=== PATIENT | female | born 1945 | race Caucasian/White ===

== ENCOUNTER 2017-01-15 13:22 | Emergency (ER) | payer MEDICARE ==
[~2017-01-15] VITALS: Ht 154.9 cm; Wt 75.0 kg
[2017-01-15] MEDS ORDERED: OMEP20TA PO (13:30)
[2017-01-15] MEDS ORDERED: ASPI1TAB69 PO (13:30)
[2017-01-15] MEDS ORDERED: ATEN25TA PO (13:30)
[2017-01-15] MEDS ORDERED: CHOL1TAB42 PO (13:30)
[2017-01-15] MEDS ORDERED: ATOR1TAB18 PO (13:30)
[2017-01-15] MEDS ORDERED: AMLO5TAB2 PO (13:30)
[2017-01-15 13:32] VITALS: BP 162/76; PULSE 92; RESP 16; TEMP 99.5; O2SAT 95
--- NOTE | 2017-01-15 14:00 | PD ---
HPI Chief Complaint: Cardiac Complaint Time Seen by Provider: 13:56 Travel History International Travel<30 days: No Contact w/Intl Traveler<30days: No Traveled to known affect area: No History of Present Illness HPI Patient presents with concerns of an irregular fast heartbeat at about 11 AM which lasted for approximately 20 minutes. Denies any associated chest pain diaphoresis or shortness of breath. Denies any excessive caffeine or high energy drinks. Denies increased stressors. States was a similar episode that occurred approximately 2 weeks ago. No complaints at this point in time. PFSH Past Medical History Arthritis: Yes High Cholesterol: Yes GERD: Yes Hypertension: Yes Influenza Vaccination: Yes ?: Not Past Surgical History Hysterectomy: Yes Social History Alcohol Use: Yes (4 GLASSES OF WINE DAILY) Tobacco Use: No Substance Use: No Allergies-Medications (Allergen,Severity, Reaction): Coded Allergies: No Known Allergies (Unverified , 01/15/17) Reported Meds & Prescriptions Reported Meds & Active Scripts Active Reported Vitamin D-3 (Cholecalciferol) 2,000 Unit Tab 1 Tab PO DAILY Aspirin 81 Mg Tabdr 81 Mg PO DAILY Omeprazole 20 Mg Tab 20 Mg PO DAILY Atorvastatin (Atorvastatin Calcium) 80 Mg Tab 80 Mg PO HS Atenolol 25 Mg Tab 25 Mg PO HS Amlodipine (Amlodipine Besylate) 5 Mg Tab 5 Mg PO DAILY Review of Systems General / Constitutional: No: Fever Eyes: No: Visual changes HENT: No: Headaches Cardiovascular: Positive: Irregular Rhythm, Tachycardia, No: Chest Pain or Discomfort Respiratory: No: Shortness of Breath Gastrointestinal: No: Abdominal Pain Genitourinary: No: Dysuria Musculoskeletal: No: Pain Skin: No Rash Neurologic: No: Weakness Psychiatric: No: Depression Endocrine: No: Polydipsia Hematologic/Lymphatic: No: Easy Bruising Physical Exam Narrative GENERAL: Well-nourished, well-developed patient. SKIN: Focused skin assessment warm/dry. HEAD: Normocephalic. EYES: No scleral icterus. No injection or drainage. NECK: Supple, trachea midline. No JVD or lymphadenopathy. CARDIOVASCULAR: Regular rate and rhythm without murmurs, gallops, or rubs. RESPIRATORY: Breath sounds equal bilaterally. No accessory muscle use. GASTROINTESTINAL: Abdomen soft, non-tender, nondistended. MUSCULOSKELETAL: No cyanosis, or edema. BACK: Nontender without obvious deformity. No CVA tenderness. Data Data Last Documented VS Vital Signs Date Time Temp Pulse Resp B/P Pulse Ox O2 Delivery O2 Flow Rate FiO2 01/15/17 13:32 99.5 92 16 162/76 95 Orders Electrocardiogram (01/15/17 ) MDM Medical Decision Making Medical Screen Exam Complete: Yes Emergency Medical Condition: Yes Differential Diagnosis Irregular heartbeat, atrial fibrillation ablation, PVC, excessive caffeine Narrative Course Assessment and plan discussed with patient and family at bedside. EKG revealed normal sinus rhythm rate of 84. Since there is no associated chest pain do not think cardiac enzymes are appropriate. Diagnosis Primary Impression: Irregular heartbeat Additional Instructions: Encouraged rest and fluids. Encouraged avoidance of stimulants. Encouraged to follow-up with PCP to discuss a 24-hour Holter monitor. Encouraged a event diary. Med/Other Pt SpecificInfo: No Meds Exist/No RX given Disposition: 01 DISCHARGE HOME Condition: Good Stevie Alcantara MD Jan 15, 2017 14:00
--- NOTE | 2017-01-16 14:45 | EKG ---
Date Performed: 01/15/2017 Time Performed: 13:44:20 PTAGE: 71 years EKG: Sinus rhythm Low QRS voltages in precordial leads Minimal nonspecific ST T-wave changes Borderline ECG NO PREVIOUS TRACING for comparison DOCTOR: Pavithra Sandoval Interpretating Date/Time 01/16/2017 14:45:27
== END 2017-01-15 14:13 | disposition home or self-care (01) ==
LOC: PHED 13:22
DX: I49.9 Cardiac arrhythmia, unspecified (principal)
CPT/HCPCS: 93005

== ENCOUNTER 2017-01-20 02:19 | Emergency (ER) | payer MEDICARE ==
[~2017-01-20] VITALS: Ht 154.9 cm; Wt 75.0 kg
[~2017-01-20 02:19] MED LIST: AMLO5TAB2 PO; ASPI1TAB69 PO; ATEN25TA PO; ATOR1TAB18 PO; CHOL1TAB42 PO; OMEP20TA PO
[2017-01-20 02:22] VITALS: BP 155/74; PULSE 89; RESP 18; TEMP 98.1; O2SAT 95
[2017-01-20] MEDS ORDERED: SODIUM CHLORIDE 0.9% FLUSH 10 ML FLUSH IVF PRN (02:45)
[2017-01-20] MEDS ORDERED: SODIUM CHLOR 0.9% 1000 ML INJ 1,000 ML IV ONE (02:45)
--- NOTE | 2017-01-20 02:52 | PD ---
HPI Chief Complaint: Cardiac Complaint Time Seen by Provider: 02:31 Travel History International Travel<30 days: No Contact w/Intl Traveler<30days: No Traveled to known affect area: No History of Present Illness HPI Patient is a 71-year-old male with hx of htn, hyperlipidemia, who presents to emergency room with complaints of palpitations and possibly afib. As per patient, patient reports that she woke up please a bathroom, reports that she felt her heart racing. Reports no chest pain, diaphoresis or shortness of breath of symptoms. Patient called for EMS. As per EMS, when EMS arrived on scene, patient's heart rate was in the 140s to the 160s. Reports that she appeared to be in A.fib. EMS reports the patient appeared dehydrated as her skin was dry, reports that they administered at 500 cc bolus of IV fluids and patient is currently in normal sinus rhythm. Patient with no complaints at this time, denies palpitations, chest pain, nausea vomiting at this time. Patient reports that this is the third time that this happened in the past 4 weeks, reports that 4 weeks ago as well as last Monday, she had similar symptoms where she woke up from sleep to use the restroom and had rapid heart rate. Reports that she did make an appointment with a vehicle controls engineer and the earliest that she can get her appointment was on February 13, [address] Clarissa ZHENG Past Medical History Arthritis: Yes Cardiovascular Problems: Yes (htn ) High Cholesterol: Yes GERD: Yes Hypertension: Yes Influenza Vaccination: Yes Past Surgical History Hysterectomy: Yes Social History Alcohol Use: Yes (4 GLASSES OF WINE DAILY) Tobacco Use: No Substance Use: No Allergies-Medications (Allergen,Severity, Reaction): Coded Allergies: No Known Allergies (Unverified , 01/20/17) Reported Meds & Prescriptions Reported Meds & Active Scripts Active Reported Vitamin D-3 (Cholecalciferol) 2,000 Unit Tab 1 Tab PO DAILY Aspirin 81 Mg Tabdr 81 Mg PO DAILY Omeprazole 20 Mg Tab 20 Mg PO DAILY Atorvastatin (Atorvastatin Calcium) 80 Mg Tab 80 Mg PO HS Atenolol 25 Mg Tab 25 Mg PO HS Amlodipine (Amlodipine Besylate) 5 Mg Tab 5 Mg PO DAILY Review of Systems General / Constitutional: No: Fever Eyes: No: Visual changes HENT: No: Headaches Cardiovascular: Positive: Palpitations, Irregular Rhythm, Tachycardia, No: Chest Pain or Discomfort Respiratory: No: Cough, Shortness of Breath, Wheezing Gastrointestinal: No: Abdominal Pain Genitourinary: No: Dysuria Musculoskeletal: No: Pain Skin: No Rash Neurologic: No: Weakness Psychiatric: No: Depression Endocrine: No: Polydipsia Hematologic/Lymphatic: No: Easy Bruising Physical Exam Narrative GENERAL: No acute distress, nontoxic SKIN: Focused skin assessment warm/dry. HEAD: Atraumatic. Normocephalic. EYES: Pupils equal and round. No scleral icterus. No injection or drainage. ENT: No nasal bleeding or discharge. Mucous membranes pink and moist. NECK: Trachea midline. No JVD. CARDIOVASCULAR: Regular rate and rhythm. No murmur appreciated. RESPIRATORY: No accessory muscle use. Clear to auscultation. Breath sounds equal bilaterally. GASTROINTESTINAL: Abdomen soft, non-tender, nondistended. Hepatic and splenic margins not palpable. MUSCULOSKELETAL: No obvious deformities. No clubbing. No cyanosis. No edema. NEUROLOGICAL: Awake and alert. No obvious cranial nerve deficits. Motor grossly within normal limits. Normal speech. PSYCHIATRIC: Appropriate mood and affect; insight and judgment normal. Data Data Last Documented VS Vital Signs Date Time Temp Pulse Resp B/P Pulse Ox O2 Delivery O2 Flow Rate FiO2 01/20/17 04:05 18 95 Room Air 01/20/17 02:22 98.1 89 155/74 Orders Basic Metabolic Panel (Bmp) (01/20/17 02:32) Ckmb (Isoenzyme) Profile (01/20/17 02:32) Complete Blood Count With Diff (01/20/17 02:32) Magnesium (Mg) (01/20/17 02:32) Prothrombin Time / Inr (Pt) (01/20/17 02:32) Act Partial Throm Time (Ptt) (01/20/17 02:32) Troponin I (01/20/17 02:32) Chest, Single Ap (01/20/17 02:32) Ecg Monitoring (01/20/17 02:32) Iv Access Insert/Monitor (01/20/17 02:32) Oximetry (01/20/17 02:32) Sodium Chloride 0.9% Flush (Ns Flush) (01/20/17 02:45) Thyroid Stimulating Hormone (01/20/17 02:32) Sodium Chlor 0.9% 1000 Ml Inj (Ns 1000 M (01/20/17 02:45) Labs Laboratory Tests Test 01/20/17 02:45 White Blood Count 6.4 TH/MM3 Red Blood Count 4.71 MIL/MM3 Hemoglobin 14.6 GM/DL Hematocrit 44.5 % Mean Corpuscular Volume 94.5 FL Mean Corpuscular Hemoglobin 31.1 PG Mean Corpuscular Hemoglobin 32.9 % Concent Red Cell Distribution Width 14.2 % Platelet Count 268 TH/MM3 Mean Platelet Volume 7.4 FL Neutrophils (%) (Auto) 52.1 % Lymphocytes (%) (Auto) 32.3 % Monocytes (%) (Auto) 11.9 % Eosinophils (%) (Auto) 2.9 % Basophils (%) (Auto) 0.8 % Neutrophils # (Auto) 3.3 TH/MM3 Lymphocytes # (Auto) 2.1 TH/MM3 Monocytes # (Auto) 0.8 TH/MM3 Eosinophils # (Auto) 0.2 TH/MM3 Basophils # (Auto) 0.1 TH/MM3 CBC Comment DIFF FINAL Differential Comment Prothrombin Time 10.8 SEC Prothromb Time International 1.0 RATIO Ratio Activated Partial 26.2 SEC Thromboplast Time Sodium Level 141 MEQ/L Potassium Level 3.6 MEQ/L Chloride Level 105 MEQ/L Carbon Dioxide Level 28.4 MEQ/L Anion Gap 8 MEQ/L Blood Urea Nitrogen 12 MG/DL Creatinine 0.61 MG/DL Estimat Glomerular Filtration 96 ML/MIN Rate Random Glucose 113 MG/DL Calcium Level 8.4 MG/DL Magnesium Level 1.9 MG/DL Total Creatine Kinase 61 U/L Troponin I LESS THAN 0.02 NG/ML Thyroid Stimulating Hormone 3.190 uIU/ML 3rd Gen [facility] Medical Decision Making Medical Screen Exam Complete: Yes Emergency Medical Condition: Yes Interpretation(s) EKG at 0226: Normal sinus rhythm at 89 beats for minute, QT/QTC 365/412, no acute ST or T-wave changes Vital Signs Date Time Temp Pulse Resp B/P Pulse Ox O2 Delivery O2 Flow Rate FiO2 01/20/17 02:22 98.1 89 18 155/74 95 Differential Diagnosis Paroxysmal A. fib, hypothyroid, dehydration, electrolyte abnormality Narrative Course Patient is a 71-year-old female who presents to emergency room with complaint of palpitations. She reports that this is the third time she woke up from sleep in the past 4 weeks with rapid heart rate. Patient reports that her symptoms only last for about 15 minutes at a time and resolve on its own. Today , patient called EMS and when they arrived on scene, reports her heart rate ranged from 140-160's. reports that it appeared that patient was in afib - reprots that she went back to NSR at 500ml bolus of fluid. Patient currently in normal sinus rhythm, plan to check lab work as well as obtain x-ray of chest. Will continue to monitor patient on case monitor. Laboratory Tests Test 01/20/17 02:45 White Blood Count 6.4 TH/MM3 (4.0-11.0) Red Blood Count 4.71 MIL/MM3 (4.00-5.30) Hemoglobin 14.6 GM/DL (11.6-15.3) Hematocrit 44.5 % (35.0-46.0) Mean Corpuscular Volume 94.5 FL (80.0-100.0) Mean Corpuscular Hemoglobin 31.1 PG (27.0-34.0) Mean Corpuscular Hemoglobin 32.9 % Concent (32.0-36.0) Red Cell Distribution Width 14.2 % (11.6-17.2) Platelet Count 268 TH/MM3 (150-450) Mean Platelet Volume 7.4 FL (7.0-11.0) Neutrophils (%) (Auto) 52.1 % (16.0-70.0) Lymphocytes (%) (Auto) 32.3 % (9.0-44.0) Monocytes (%) (Auto) 11.9 % (0.0-8.0) Eosinophils (%) (Auto) 2.9 % (0.0-4.0) Basophils (%) (Auto) 0.8 % (0.0-2.0) Neutrophils # (Auto) 3.3 TH/MM3 (1.8-7.7) Lymphocytes # (Auto) 2.1 TH/MM3 (1.0-4.8) Monocytes # (Auto) 0.8 TH/MM3 (0-0.9) Eosinophils # (Auto) 0.2 TH/MM3 (0-0.4) Basophils # (Auto) 0.1 TH/MM3 (0-0.2) CBC Comment DIFF FINAL Differential Comment Prothrombin Time 10.8 SEC (9.8-11.6) Prothromb Time International 1.0 RATIO Ratio Activated Partial 26.2 SEC Thromboplast Time (24.3-30.1) Sodium Level 141 MEQ/L (136-145) Potassium Level 3.6 MEQ/L (3.5-5.1) Chloride Level 105 MEQ/L (98-107) Carbon Dioxide Level 28.4 MEQ/L (21.0-32.0) Anion Gap 8 MEQ/L (5-15) Blood Urea Nitrogen 12 MG/DL (7-18) Creatinine 0.61 MG/DL (0.50-1.00) Estimat Glomerular Filtration 96 ML/MIN (>89) Rate Random Glucose 113 MG/DL (74-106) Calcium Level 8.4 MG/DL (8.5-10.1) Magnesium Level 1.9 MG/DL (1.5-2.5) Total Creatine Kinase 61 U/L (26-192) Troponin I LESS THAN 0.02 NG/ML (0.02-0.05) Thyroid Stimulating Hormone 3.190 uIU/ML 3rd Gen (0.358-3.740) Last Impressions Chest X-Ray 01/20/17 0232 Signed Impressions: Service Date/Time: Friday, January 20, 2017 02:31 - CONCLUSION: No acute intrathoracic disease. Bong Hidalgo MD All labs and studies reviewed with patient in detail. Patient with HR in the 70- 80's in NSR. Patient reports that she is feeling better at this time. Plan to discharge patient to home with outpatient follow-up with vehicle controls engineer. Discussed need to call vehicle controls engineer for earlier appointment, also recommended having her primary care doctor order a Holter monitor to catch her irregular rhythm when it happens. Patient will return to emergency room if symptoms return. Diagnosis Primary Impression: Irregular heartbeat Patient Instructions: General Instructions Additional Instructions: Please call your doctor for earliest follow up Return to ER as needed or if symptoms return Please call vehicle controls engineer for earliest follow up appointment Disposition: 01 DISCHARGE HOME Condition: Stable Betty Waddell DO Jan 20, 2017 02:52
[2017-01-20 03:03] LABS: AUTOMATED NEUTROPHIL # 3.3 TH/MM3 (1.8-7.7); BASOPHIL # 0.1 TH/MM3 (0-0.2); BASOPHIL % 0.8 % (0.0-2.0); EOSINOPHIL # 0.2 TH/MM3 (0-0.4); EOSINOPHIL % 2.9 % (0.0-4.0); HEMATOCRIT 44.5 % (35.0-46.0); HEMO FLAGS DIFF FINAL; LYMPH % 32.3 % (9.0-44.0); LYMPHOCYTE # 2.1 TH/MM3 (1.0-4.8); MEAN CELL VOLUME 94.5 FL (80.0-100.0); MEAN CORPUSCULAR HEMOGLOBIN 31.1 PG (27.0-34.0); MEAN CORPUSCULAR HGB CONC 32.9 % (32.0-36.0); MONO % 11.9 % (0.0-8.0); NEUT % 52.1 % (16.0-70.0); PLATELET COUNT 268 TH/MM3 (150-450); RED BLOOD COUNT 4.71 MIL/MM3 (4.00-5.30); RED CELL DISTRIBUTION WIDTH 14.2 % (11.6-17.2); WHITE BLOOD COUNT 6.4 TH/MM3 (4.0-11.0)
[2017-01-20 03:10] LABS: APTT (PATIENT) 26.2 SEC (24.3-30.1); PROTHROMBIN TIME - PATIENT 10.8 SEC (9.8-11.6)
--- NOTE | 2017-01-20 03:18 | RADRPT ---
EXAM DATE/TIME: 01/20/2017 02:31 [facility] COMPARISON: No previous studies available for comparison. INDICATIONS : Heart palpitations. MEDICAL HISTORY : None. SURGICAL HISTORY : None. ENCOUNTER: Initial ACUITY: 2 days PAIN SCORE: 0/10 LOCATION: chest FINDINGS: A single view of the chest demonstrates the lungs to be symmetrically aerated without evidence of mas s, infiltrate or effusion. The cardiomediastinal contours are unremarkable. Osseous structures are intact. CONCLUSION: No acute intrathoracic disease. Bong Hidalgo MD on January 20, 2017 at 3:16 Board Certified Radiologist. This report was verified electronically.
[2017-01-20 03:21] LABS: ANION GAP 8 MEQ/L (5-15); BICARBONATE 28.4 MEQ/L (21.0-32.0); BLOOD UREA NITROGEN 12 MG/DL (7-18); CHLORIDE 105 MEQ/L (98-107); CREATINE KINASE 61 U/L (26-192); GLOMERULAR FILTRATION RATE 96 ML/MIN (>89); MAGNESIUM 1.9 MG/DL (1.5-2.5); POTASSIUM 3.6 MEQ/L (3.5-5.1); SODIUM (NA) 141 MEQ/L (136-145)
[2017-01-20 04:05] VITALS: RESP 18; O2SAT 95
--- NOTE | 2017-01-20 09:40 | EKG ---
Date Performed: 01/20/2017 Time Performed: 02:26:49 PTAGE: 71 years EKG: Sinus rhythm MINIMAL VOLTAGE CRITERIA FOR LVH, CONSIDER NORMAL VARIANT BORDERLINE ECG NO PREVIOUS TRACING DOCTOR: Norm Mendenhall Interpretating Date/Time 01/20/2017 09:39:09
== END 2017-01-20 06:21 | disposition home or self-care (01) ==
LOC: NEPC 02:19
DX: I49.9 Cardiac arrhythmia, unspecified (principal); I10 Essential (primary) hypertension; E78.00 Pure hypercholesterolemia, unspecified; K21.9 Gastro-esophageal reflux disease without esophagitis; Z79.899 Other long term (current) drug therapy
CPT/HCPCS: 71010; 80048; 82550; 83735; 84443; 84484; 85025; 85610; 85730; 93005; 96360; 96361; 99284; J7030

== ENCOUNTER 2017-03-10 15:04 | Inpatient (IN) | payer MEDICARE ==
[~2017-03-10] VITALS: Ht 156.2 cm; Wt 77.2 kg
[~2017-03-10 15:04] MED LIST changes: -ASPI1TAB69 PO
[2017-03-13] MEDS ORDERED: APIX5TAB PO (09:11)
[2017-03-13] MEDS ORDERED: ACET-898 PO (09:12)
[2017-03-29] MEDS ORDERED: INSULIN HUMAN REGULAR 1,000 UNITS/10 ML VIAL SQ PRN (05:45)
[2017-03-29] MEDS ORDERED: METOPROLOL TARTRATE 25 MG TAB PO PRN (05:45)
[2017-03-29] MEDS ORDERED: POVIDONE IODINE 5% (ANTISEPSIS KIT) 4 APPLICATIONS EACH NARE PRN (05:45)
[2017-03-29] MEDS ORDERED: LACTATED RINGER'S 1000 ML IV PRN (05:45)
[2017-03-29] MEDS ORDERED: POVIDONE IODINE 7.5% SCRUB 118 ML BOTTLE TOPICAL SCH (05:45)
[2017-03-29] MEDS ORDERED: ceFAZolin 2 GM PREMIX 50 ML IV SCH (05:45)
[2017-03-29] MEDS ORDERED: CHLORHEXIDINE GLUCONATE 2 % 1 PACK (2 CLOTHS) TOPICAL PRN (05:45)
[2017-03-29] MEDS ORDERED: VANCOMYCIN 1000 MG/NS 250 ML (for <70 kg) IV SCH ×2 (05:45)
[2017-03-29] MEDS ORDERED: SODIUM CHLORID 0.9% 500 ML IV PRN (05:45)
[2017-03-29 05:54] VITALS: BP 165/84; PULSE 80; RESP 16; TEMP 98.6; O2SAT 95
[2017-03-29] MEDS ORDERED: GENTAMICIN SULFATE 80 MG/2 ML VIAL ONE (06:00)
[2017-03-29] MEDS ORDERED: ACETAMINOPHEN 1000 MG/100 ML VIAL IV ONE (06:28)
[2017-03-29] MEDS ORDERED: FAMOTIDINE 20 MG/2 ML VIAL ONE (06:28)
[2017-03-29] MEDS ORDERED: EXPAREL PERI-ARTICULAR INJECTION (TOTAL VOL. 60 ML) P-ARTICULR SCH ×2 (07:00)
[2017-03-29] MEDS ORDERED: DEXAMETHASONE SOD PHOS 20 MG/5 ML VIAL IV SCH (07:00)
[2017-03-29] MEDS ORDERED: TRANEXAMIC ACID IV SCH ×2 (07:00→10:00)
[2017-03-29] MEDS ORDERED: SODIUM CHLORIDE 0.9% IV SCH ×2 (07:00→10:00)
--- NOTE | 2017-03-29 08:28 | PD.OP ---
cc: Blake Lam MD Operative Report Date of Surgery: Mar 29, 2017 Preoperative Diagnosis: Right hip severe osteoarthritis Postoperative Diagnosis: Same Procedure: Right total hip arthroplasty Anesthesia: Gen. Surgeon: Blake Lam Acquisition Analyst(s): LEONIE Camarillo The surgical procedure was assisted by my Advanced Registered Nurse Practitioner. My [employer] presence was necessary throughout this case for the manipulation and positioning of the surgical extremity. My [employer] was assisting me throughout the duration of this procedure. The skill set of an Advance Registered Nurse Practitioner was medically necessary to complete this procedure. During the surgical case, the surgical training specialist was working at the back table and the Advance Registered Nurse Practitioner was directly assisting me. Operation and Findings: IMPLANT DESCRIPTION: 1. [place] Gription Cup, acetabular size 50. 2. [place] AltrX polyethylene, neutral. 4. [place] femoral stem size 10, no collar, high offset. 5. Femoral head/neck metal, 32, +1. ESTIMATED BLOOD LOSS: 200 cc. JUSTIFICATION FOR PROCEDURE: The patient has end-stage osteoarthritis to the hip. There is an attached conservative measures pathway form in the chart that describes the nonoperative measures that were undertaken prior to consideration of surgical management. The patient understood the risks and benefits of surgical management. See my office notes for further details. PROCEDURE: The patient was brought back to the operative theatre. Adequate anesthesia was obtained. The patient received intravenous vancomycin and Ancef. The patient was carefully placed on the operative table. The lower extremity was prepped and draped in the usual sterile fashion. Fluoroscopic images were obtained. We made a standard anterior incision over the hip. We dissected through the TFL fascia, exposing the anterior capsule. Arthrotomy was performed in a T-shaped fashion. The capsule was tagged with a #2 FiberWire. End-stage arthritis was identified. Osteotomy was performed through the femoral neck exposing the acetabulum. Remnants of the labrum were resected and osteophytes were removed. We sequentially reamed the acetabulum. We trialed the hip and placed the final cup into position. This was done under fluoroscopic guidance to obtain the appropriate inclination and anteversion. A manhole cover was placed into the acetabular component. We then placed the final polyethylene into position and confirmed that it was well seated. Capsular attachments on the calcar and the inner aspect of the greater trochanter were resected. On the proximal aspect of the femur we used a rongeur , box osteotome, canal finder, sequential broaches and lateralizing rasp. We calcar planed the proximal femur. Then thoroughly irrigated the wound. We trialed the hip with the appropriate size stem. We placed the final stem in to position and trialed again. The hip was stable while it was externally rotated 70 degrees when the leg was lowered to the floor. The final head was applied, and final fluoroscopic images were obtained. The wound was thoroughly irrigated again. Interarticular injection of liposomal bupivacaine was given. The capsule was closed with #2 FiberWire and #1 Vicryl. The deep fascia was closed with a #2 Stratafix, followed by 2-0 Vicryl in the skin and baljinder. Postop plan is to weight-bear as tolerated. DVT prophylaxis will be performed with DMITRY Mclaughlin, early mobilization, and Eliquis 2.5 mg twice a day while in the hospital. The patient will then resume outpatient dose of Eliquis. Blake Lam MD Mar 29, 2017 08:28
[2017-03-29] MEDS ORDERED: NORC5TAB PO (08:29)
[2017-03-29] MEDS ORDERED: diphenhydrAMINE HCL 50 MG/ML VIAL IV PRN (08:30)
[2017-03-29] MEDS ORDERED: ZOLPIDEM TARTRATE 5 MG TAB PO PRN (08:30)
[2017-03-29] MEDS ORDERED: Post-op Orders (for Pharmacy) MISC XX ONE (08:30)
[2017-03-29] MEDS ORDERED: MORPHINE SULFATE 4 MG/ML INJ IV PUSH PRN (08:30)
[2017-03-29] MEDS ORDERED: ONDANSETRON HCL 4 MG/2 ML VIAL IVP PRN (08:30)
[2017-03-29] MEDS ORDERED: NALOXONE HCL 0.4 MG/ML AMP IV PRN (08:30)
[2017-03-29] MEDS ORDERED: ALUMINUM/MAGNESIUM/SIMETH 30 ML CUP PO PRN (08:30)
[2017-03-29] MEDS ORDERED: SODIUM CHLORIDE 0.9% FLUSH 5 ML FLUSH IVF PRN (08:30)
[2017-03-29] MEDS ORDERED: BISACODYL 10 MG SUPP RECTAL PRN (08:30)
--- NOTE | 2017-03-29 08:53 | HHI.DCPOC ---
Discharge Care Plan Diagnosis: (1) Osteoarthritis of right hip (2) Status post total hip replacement, right Your Health Problems Are: Difficulty with ADL Goals to Promote Your Health * To prevent worsening of your condition and complications * To maintain your health at the optimal level Directions to Meet Your Goals Take your medications as prescribed Follow your dietary instruction Follow activity as directed Keep your appointments as scheduled Take your immunizations and boosters as scheduled If your symptoms worsen call your PCP, if no PCP go to Urgent Care Center or Emergency Room Smoking is Dangerous to Your Health. Avoid second hand smoke Call the 24-hour hour crisis hotline for domestic abuse at Javi Mota Mar 29, 2017 08:53
--- NOTE | 2017-03-29 08:55 | HHI.FF ---
Face to Face Verification Diagnosis: (1) Status post total hip replacement, right (2) Osteoarthritis of right hip Physical Therapy Gait training, Transfer training, bed to chair Hip: Total hip Right LE Weight Bearing: WB as tolerated Right LE Range of Motion: Active ROM Nursing Nursing: Dressing changes Dressing Changes: Daily dressing change Additional Instructions Eliquis for DVT prophylaxis I have seen patient Gabriela Olvera on 03/29/17. My clinical findings support the need for the requested home health care services because: Limited ability to care for self High risk of falls I certify that my clinical findings support that this patient is homebound because: Post-op weakness Unsteady gait/balance Javi Mota Mar 29, 2017 08:55
[2017-03-29] MEDS ORDERED: *morphine SULFATE 8 MG/ML PERIprocedure ONLY ONE ×3 (08:56→09:23)
[2017-03-29] MEDS ORDERED: fentaNYL CITRATE 250 MCG/5 ML AMP ONE (08:57)
[2017-03-29] MEDS ORDERED: MIDAZOLAM HCL 2 MG/2 ML VIAL ONE (08:57)
[2017-03-29] MEDS ORDERED: COMMODE 3-IN-11 MIS (08:58)
[2017-03-29] MEDS ORDERED: WALKER WHEELS/F1 MIS (08:58)
[2017-03-29] MEDS: amLODIPine BESYLATE 5 MG TAB PO SCH (09:00)
[2017-03-29] MEDS: ATENOLOL 25 MG TAB PO SCH ×2 (09:00→20:23)
[2017-03-29] MEDS: SODIUM CHLORIDE 0.9% FLUSH 5 ML FLUSH IVF SCH ×2 (09:00→20:27)
[2017-03-29] MEDS: SODIUM CHLOR 0.9% 1000 ML INJ 1,000 ML IV SCH ×2 (09:08→20:27)
[2017-03-29] MEDS ORDERED: *HYDROmorphone PF 1 MG VIAL PERIprocedural Use ONLY ONE (09:39)
--- NOTE | 2017-03-29 10:34 | RADRPT ---
EXAM DATE/TIME: 03/29/2017 09:15 [facility] COMPARISON: No previous studies available for comparison. INDICATIONS : Post op right hip surgery. MEDICAL HISTORY : None. SURGICAL HISTORY : None. ENCOUNTER: Initial ACUITY: 1 day PAIN SCORE: 7/10 LOCATION: Right hip. FINDINGS: The patient has a bipolar hip prosthesis seen on the right. The prosthetic component a ppears well placed. Skin baljinder are seen latterly. Air is seen within the soft tissues which is a normal post-operative finding. The patient does appear to have some calcification seen lateral to th e left ischial tuberosity and inferior to the left femoral head. CONCLUSION: 1. Good placement of a right bipolar hip prosthesis. 2. Calcification seen in the soft tissues inferior to the left femoral head and lateral to the left i schial tuberosity. Kash Maldonado MD on March 29, 2017 at 10:11 Board Certified Radiologist. This report was verified electronically.
[2017-03-29 11:15] VITALS: BP 119/58; PULSE 65; RESP 18; TEMP 95.2; O2SAT 96
[2017-03-29] MEDS ORDERED: PROPOFOL 200 MG/20 ML AMP IV ONE (12:00)
[2017-03-29] MEDS ORDERED: ONDANSETRON HCL 4 MG/2 ML VIAL IV PUSH ONE (12:00)
[2017-03-29] MEDS ORDERED: NEOSTIGMINE 3 MG/3 ML SYR IV ONE (12:00)
--- NOTE | 2017-03-29 13:09 | RADRPT ---
EXAM DATE/TIME: 03/29/2017 07:07 [facility] COMPARISON: No previous studies available for comparison. INDICATIONS : Right total hip anterior arthroplasty. OR. MEDICAL HISTORY : None. SURGICAL HISTORY : None. ENCOUNTER: Initial ACUITY: 1 day PAIN SCORE: Non-responsive. LOCATION: Right hip FINDINGS: The patient is status post a total hip arthroplasty with a bipolar prosthesis. Prosthesis is well-sea ramez. Alignment is anatomic. A fracture is not appreciated. CONCLUSION: Anatomic alignment. Aubrey Puckett MD FACR Board Certified Radiologist. This report was verified electronically.
--- NOTE | 2017-03-29 14:28 | PD.CONS ---
HPI Service [facility] Hospitalists Consult Requested By Orthopedic service Reason for Consult Medical management Primary Care Physician Estefany Byers MD Diagnoses: History of Present Illness Written by Selene Be PA-C acting as scribe for Dr. Gamino on 03/29/17 at 14:08. This is a 71 yo female with a PMHX of HTN, recently dx'd atrial fibrillation on Eliquis, dyslipidemia, GERD and osteoarthritis s/p right THR performed by Dr. Lam earlier today. Hospitalist services consulted for medical management. Patient seen and examined today. Patient states she is feeling sleepy but otherwise is doing well. Postoperative pain is controlled. She denies any other complaints at this time. No fever, chills, N/V, shortness of breath, chest pain or abdominal pain. Review of Systems Except as stated in HPI: all other systems reviewed are Neg Past Family Social History Allergies: Coded Allergies: No Known Allergies (Unverified , 03/29/17) Past Medical History Hypertension Hyperlipidemia GERD Osteoarthritis Atrial fibrillation dx'd January 2017 on Eliquis Incidental finding of kidney stones, asymptomatic Past Surgical History Hysterectomy Appendectomy [place] teeth extraction Reported Medications Eliquis 5mg po BID Atenolol 25mg po BID Amlodipine 5mg po QD Atorvastatin 80mg po QHS Omeprazole 20mg po QHS Vitamin D3 2000units po QHS Active Ordered Medications Current Medications Medications (Trade) Dose Ordered Sig/Kaila Route Start Time Stop Time Status Last Admin (Lr 1000 ml Inj) 1,000 ml @ 30 mls/hr Q24H PRN IV 03/29/17 05:45 04/01/17 05:44 03/29/17 05:50 (Betadine 7.5% Scrub) 1 applic ONCE TOPICAL 03/29/17 05:45 04/01/17 05:44 (Norvasc) 5 mg DAILY PO 03/29/17 09:00 (Tenormin) 25 mg BID PO 03/29/17 09:00 (Lipitor) 80 mg HS PO 03/29/17 21:00 (Vitamin D3) 2,000 units HS PO 03/29/17 21:00 Pantoprazole Sodium 20 mg 20 mg HS PO 03/29/17 21:00 (NS 1000 ml Inj) 1,000 ml @ 100 mls/hr Q10H IV 03/29/17 08:23 03/29/17 09:08 (NS Flush) 2 ml UNSCH PRN IVF 03/29/17 08:30 IV Flush 2 ml 2 ml BID IVF 03/29/17 09:00 03/29/17 09:00 (Ancef Inj/NS Inj) 100 ml @ 200 mls/hr Q6H IV 03/29/17 12:00 03/30/17 00:29 03/29/17 12:16 (Decadron Inj) 10 mg ONCE ONCE IV 03/30/17 07:45 03/30/17 07:46 ([place] 5-325 Mg) 1 tab Q4H PRN PO 03/29/17 08:30 Acetaminophen/ Hydrocodone Bitart 2 tab 2 tab Q4H PRN PO 03/29/17 08:30 (Cyklokapron Inj/ NS Inj) 107.57 ml @ 200 mls/ hr ONCE IV 03/29/17 10:00 03/29/17 16:00 03/29/17 10:02 (Theragran M Tab) 1 tab BID PO 03/30/17 21:00 05/29/17 20:59 (Zofran Inj) 4 mg Q6H PRN IVP 03/29/17 08:30 (Colace) 100 mg BID PO 03/30/17 21:00 (Mag-Al Plus Susp Liq) 30 ml Q6H PRN PO 03/29/17 08:30 (Ambien) 5 mg HS PRN PO 03/29/17 08:30 (Dulcolax Supp) 10 mg DAILY PRN RECTAL 03/29/17 08:30 (Milk Of Magnesia Liq) 30 ml DAILY PRN PO 03/29/17 08:30 (Narcan Inj) 0.4 mg UNSCH PRN IV 03/29/17 08:30 (Benadryl Inj) 25 mg Q6H PRN IV 03/29/17 08:30 (Morphine Inj) 2 mg Q3H PRN IV PUSH 03/29/17 08:30 (Eliquis) 2.5 mg BID PO 03/30/17 09:00 Family History Mother, vascular dementia, age 86 Father, rheumatic heart disease Brother, [place] age 55, alive age 75 Social History Patient denies any tobacco use. She admits to 2 1/2 glasses of wine daily. Patient denies any illicit drug use. Physical Exam Vital Signs Vital Signs Date Time Temp Pulse Resp B/P Pulse Ox O2 Delivery O2 Flow Rate FiO2 03/29/17 11:15 95.2 65 18 119/58 96 03/29/17 10:45 97.7 58 12 127/65 96 Nasal Cannula 3 03/29/17 10:00 52 12 122/59 94 Nasal Cannula 3 03/29/17 09:45 57 12 137/66 93 Nasal Cannula 3 03/29/17 09:30 62 12 151/69 95 Nasal Cannula 3 03/29/17 09:15 57 12 158/73 95 Nasal Cannula 3 03/29/17 09:00 58 12 154/70 93 Nasal Cannula 3 03/29/17 08:51 97.8 62 14 167/73 91 Nasal Cannula 3 03/29/17 05:54 98.6 80 16 165/84 95 Physical Exam GENERAL: This is a well-nourished, well-developed patient, in no apparent distress. Sitting up in bedside chair. Awake and alert. SKIN: No rashes, ecchymoses or lesions. Cool and dry. HEAD: Atraumatic. Normocephalic. No temporal or scalp tenderness. EYES: Pupils equal round and reactive. Extraocular motions intact. No scleral icterus. No injection or drainage. ENT: Nose without bleeding, purulent drainage or septal hematoma. Throat without erythema, tonsillar hypertrophy or exudate. Uvula midline. Airway patent. NECK: Trachea midline. No lymphadenopathy. Supple, nontender, no meningeal signs. CARDIOVASCULAR: Regular rate and rhythm without murmurs, gallops, or rubs. RESPIRATORY: Clear to auscultation. Breath sounds equal bilaterally. No wheezes , rales, or rhonchi. GASTROINTESTINAL: Abdomen soft, non-tender, nondistended. No hepato-splenomegaly , or palpable masses. No guarding. MUSCULOSKELETAL: Extremities without clubbing, cyanosis, or edema. s/p Right THR. Dressing C/D/I. NV intact distally. NEUROLOGICAL: Awake and alert. Able to move all extremities. No focal neurologic findings appreciated. Normal speech. Laboratory Laboratory Tests Test 03/29/17 05:53 Blood Type O POSITIVE Antibody Screen NEGATIVE Blood Bank Comment Imaging Last Impressions Hip and Pelvis X-Ray 03/29/17 0892 Signed Impressions: Service Date/Time: Wednesday, March 29, 2017 09:15 - CONCLUSION: 1. Good placement of a right bipolar hip prosthesis. 2. Calcification seen in the soft tissues inferior to the left femoral head and lateral to the left ischial tuberosity. Kash Maldonado MD Hip X-Ray 03/29/17 0000 Signed Impressions: Service Date/Time: Wednesday, March 29, 2017 07:07 - CONCLUSION: Anatomic alignment. Aubrey Puckett MD Assessment and Plan Assessment and Plan 71 yo female with a PMHX of HTN, recently dx'd atrial fibrillation on Eliquis, dyslipidemia, GERD and osteoarthritis s/p right THR performed by Dr. Lam earlier today. Hospitalist services consulted for medical management. -Osteoarthritis - s/p Right THR - follow H/H - maintain total hip precautions - pain management prn - bowel regimen with docusate and dulcolax - begin participation with PT - per primary team - Eliquis 2.5mg BID while in the hospital then resume previous home dose of Eliquis following discharge -HTN/atrial fibrillation - rate controlled - resume home medications to include Atenolol 25mg po BID and Amlodipine 5mg po QD -Dyslipidemia - resume home Atorvastatin 80mg po QHS -GERD - continue Protonix 20mg po QHS -Vitamin D deficiency - continue Vitamin D3 2000units po QHS -ETOH use - discussed decreasing alcohol consumption to one alcoholic beverage daily -DVT prophylaxis - bilateral SCD/DMITRY hose - early mobilization - per primary team - Eliquis 2.5mg BID while in the hospital then resume previous home dose of Eliquis following discharge Thank you kindly for this consult. We will continue to follow this patient with you. This note was transcribed by micah Be PA-C. I, Dr. Michael Gamino personally performed the history, physical exam, and medical decision making; and confirmed the accuracy of the information in the transcribed note. Authenticated by Dr. Michael Gamino on 03/29/17 at 18:46. Selene Be Mar 29, 2017 14:28 Cari Gamino DO Mar 29, 2017 18:47
[2017-03-29 16:00] VITALS: BP 125/67; PULSE 72; RESP 18; TEMP 96.2; O2SAT 98
[2017-03-29] MEDS: ACETAMINOPHEN/HYDROcodone 325 MG/5 MG TAB PO PRN ×2 (16:46→21:33)
[2017-03-29 19:13] VITALS: BP 142/65; PULSE 87; RESP 18; TEMP 96.7; O2SAT 95
[2017-03-29] MEDS: ATORVASTATIN 80 MG TAB PO SCH (20:23)
[2017-03-29] MEDS: PANTOPRAZOLE SOD 20 MG DELAYED RELEASE TAB PO SCH (20:23)
[2017-03-29] MEDS: CHOLECALCIFEROL (VIT D3) 1000 UNIT TAB PO SCH (20:24)
[2017-03-29 23:05] VITALS: BP 128/63; PULSE 66; RESP 18; TEMP 97.8; O2SAT 97
[2017-03-30] MEDS: ACETAMINOPHEN/HYDROcodone 325 MG/5 MG TAB PO PRN ×5 (01:28→18:35)
[2017-03-30 03:15] VITALS: BP 131/68; PULSE 77; RESP 18; TEMP 97.8; O2SAT 93
[2017-03-30] MEDS: SODIUM CHLOR 0.9% 1000 ML INJ 1,000 ML IV SCH ×2 (04:23→19:55)
[2017-03-30] MEDS: MAGNESIUM HYDROXIDE SUSP 30 ML CUP PO PRN (06:18)
[2017-03-30 06:26] LABS: HEMATOCRIT 31.6 % (35.0-46.0); MEAN CELL VOLUME 96.3 FL (80.0-100.0); MEAN CORPUSCULAR HEMOGLOBIN 32.2 PG (27.0-34.0); MEAN CORPUSCULAR HGB CONC 33.5 % (32.0-36.0); PLATELET COUNT 267 TH/MM3 (150-450); RED BLOOD COUNT 3.28 MIL/MM3 (4.00-5.30); RED CELL DISTRIBUTION WIDTH 15.7 % (11.6-17.2); REVIEW FLAG FINAL; WHITE BLOOD COUNT 9.2 TH/MM3 (4.0-11.0)
[2017-03-30] MEDS ORDERED: DEXAMETHASONE SOD PHOS 20 MG/5 ML VIAL IV ONE (07:45)
[2017-03-30 08:00] VITALS: BP 141/60; PULSE 64; RESP 16; TEMP 98.2; O2SAT 93
[2017-03-30] MEDS: APIXABAN 2.5 MG TABLET PO SCH ×2 (08:15→20:56)
[2017-03-30] MEDS: SODIUM CHLORIDE 0.9% FLUSH 5 ML FLUSH IVF SCH ×2 (09:00→20:58)
[2017-03-30] MEDS: amLODIPine BESYLATE 5 MG TAB PO SCH (09:07)
[2017-03-30] MEDS: ATENOLOL 25 MG TAB PO SCH ×2 (09:07→20:55)
--- NOTE | 2017-03-30 09:14 | HHI.PR ---
Subjective Remarks Follow up on patient s/p R THR. Patient seen and examined today. States she is doing well overall. Woke up several times to urinate overnight which is her norm. Some nonproductive cough overnight, now resolved. Right hip pain controlled. She denies any headache, dizziness, fever, chills, N/V, shortness of breath or chest pain. Reports mild sharp pain RLQ with palpation. No BM as of yet. Objective Vitals Vital Signs Date Time Temp Pulse Resp B/P Pulse Ox O2 Delivery O2 Flow Rate FiO2 03/30/17 03:15 97.8 77 18 131/68 93 03/29/17 23:05 97.8 66 18 128/63 97 03/29/17 19:13 96.7 87 18 142/65 95 03/29/17 16:00 96.2 72 18 125/67 98 03/29/17 11:15 95.2 65 18 119/58 96 03/29/17 10:45 97.7 58 12 127/65 96 Nasal Cannula 3 03/29/17 10:00 52 12 122/59 94 Nasal Cannula 3 03/29/17 09:45 57 12 137/66 93 Nasal Cannula 3 03/29/17 09:30 62 12 151/69 95 Nasal Cannula 3 03/29/17 09:15 57 12 158/73 95 Nasal Cannula 3 I/O 03/29/17 03/29/17 03/29/17 03/30/17 03/30/17 03/30/17 07:00 15:00 23:00 07:00 15:00 23:00 Intake Total 1464 ml 480 ml 480 ml Output Total 200 ml 200 ml Balance 1264 ml 280 ml 480 ml Intake Oral 270 ml 480 ml 480 ml IV Total 594 ml Other 600 ml Output Urine Total 200 ml Estimated Blood Loss 200 ml # Voids 0 4 4 # Bowel Movements 0 0 Result Diagram: 03/30/17 0535 Imaging Last Impressions Hip and Pelvis X-Ray 03/29/17 0823 Signed Impressions: Service Date/Time: Wednesday, March 29, 2017 09:15 - CONCLUSION: 1. Good placement of a right bipolar hip prosthesis. 2. Calcification seen in the soft tissues inferior to the left femoral head and lateral to the left ischial tuberosity. Kash Maldonado MD Hip X-Ray 03/29/17 0000 Signed Impressions: Service Date/Time: Wednesday, March 29, 2017 07:07 - CONCLUSION: Anatomic alignment. Aubrey Puckett MD Objective Remarks GENERAL: This is a well-nourished, well-developed patient, in no apparent distress. Lying in hospital bed. Asleep but easily arousable. Appears comfortable. SKIN: No rashes, ecchymoses or lesions. Cool and dry. HEAD: Atraumatic. Normocephalic. EOMI. MMM. CARDIOVASCULAR: Regular rate and rhythm without murmurs, gallops, or rubs. RESPIRATORY: Clear to auscultation. Breath sounds equal bilaterally. No wheezes , rales, or rhonchi. GASTROINTESTINAL: Abdomen soft, nondistended. (+)mild tenderness to palpation RLQ. No hepato-splenomegaly, or palpable masses. No guarding. MUSCULOSKELETAL: Extremities without clubbing, cyanosis, or edema. s/p Right THR. Dressing C/D/I. NV intact distally. NEUROLOGICAL: Awake and alert. Able to move all extremities. No focal neurologic findings appreciated. Normal speech. Medications and IVs Current Medications Medications (Trade) Dose Ordered Sig/Kaila Route Start Time Stop Time Status Last Admin (Lr 1000 ml Inj) 1,000 ml @ 30 mls/hr Q24H PRN IV 03/29/17 05:45 04/01/17 05:44 03/29/17 05:50 (Betadine 7.5% Scrub) 1 applic ONCE TOPICAL 03/29/17 05:45 04/01/17 05:44 (Norvasc) 5 mg DAILY PO 03/29/17 09:00 (Tenormin) 25 mg BID PO 03/29/17 09:00 03/29/17 20:23 (Lipitor) 80 mg HS PO 03/29/17 21:00 03/29/17 20:23 (Vitamin D3) 2,000 units HS PO 03/29/17 21:00 03/29/17 20:24 Pantoprazole Sodium 20 mg 20 mg HS PO 03/29/17 21:00 03/29/17 20:23 (NS 1000 ml Inj) 1,000 ml @ 100 mls/hr Q10H IV 03/29/17 08:23 03/29/17 20:27 (NS Flush) 2 ml UNSCH PRN IVF 03/29/17 08:30 (NS Flush) 2 ml BID IVF 03/29/17 09:00 03/29/17 09:00 ([place] 5-325 Mg) 1 tab Q4H PRN PO 03/29/17 08:30 03/30/17 06:18 ([place] 5-325 Mg) 2 tab Q4H PRN PO 03/29/17 08:30 (Theragran M Tab) 1 tab BID PO 03/30/17 21:00 05/29/17 20:59 (Zofran Inj) 4 mg Q6H PRN IVP 03/29/17 08:30 (Colace) 100 mg BID PO 03/30/17 21:00 (Mag-Al Plus Susp Liq) 30 ml Q6H PRN PO 03/29/17 08:30 (Ambien) 5 mg HS PRN PO 03/29/17 08:30 (Dulcolax Supp) 10 mg DAILY PRN RECTAL 03/29/17 08:30 (Milk Of Magnesia Liq) 30 ml DAILY PRN PO 03/29/17 08:30 03/30/17 06:18 (Narcan Inj) 0.4 mg UNSCH PRN IV 03/29/17 08:30 (Benadryl Inj) 25 mg Q6H PRN IV 03/29/17 08:30 (Morphine Inj) 2 mg Q3H PRN IV PUSH 03/29/17 08:30 (Eliquis) 2.5 mg BID PO 03/30/17 09:00 A/P Assessment and Plan 71 yo female with a PMHX of HTN, recently dx'd atrial fibrillation on Eliquis, dyslipidemia, GERD and osteoarthritis s/p right THR performed by Dr. Lam earlier today. Hospitalist services consulted for medical management. -Osteoarthritis - s/p Right THR - H/H stable at 10.6/31.6 - maintain total hip precautions - pain management prn - bowel regimen with docusate and dulcolax - continue participation with PT - per primary team - Eliquis 2.5mg BID while in the hospital then resume previous home dose of Eliquis following discharge -HTN/atrial fibrillation - rate controlled - HR 77 - continue home medications to include Atenolol 25mg po BID and Amlodipine 5mg po QD -Dyslipidemia - continue home Atorvastatin 80mg po QHS -GERD - continue Protonix 20mg po QHS -Vitamin D deficiency - continue Vitamin D3 2000units po QHS -ETOH use - discussed decreasing alcohol consumption to one alcoholic beverage daily -Constipation - continue bowel regimen - monitor for BM -DVT prophylaxis - bilateral SCD/DMITRY hose - early mobilization - per primary team - Eliquis 2.5mg BID while in the hospital then resume previous home dose of Eliquis following discharge Discussed with patient and Selene Salazar Mar 30, 2017 09:14
[2017-03-30 12:00] VITALS: BP 123/61; PULSE 62; RESP 16; TEMP 98.4; O2SAT 96
--- NOTE | 2017-03-30 12:38 | PD.ORT.PN ---
Subjective Post Op Day #: 1 Subjective Remarks Patient resting comfortably in bed in NAD. Patient's pain is minimal. Visitor at bedside with patient. Patient is ambulatory and is eating lunch. Objective Vitals Vital Signs Date Time Temp Pulse Resp B/P Pulse Ox O2 Delivery O2 Flow Rate FiO2 03/30/17 08:00 98.2 64 16 141/60 93 03/30/17 03:15 97.8 77 18 131/68 93 03/29/17 23:05 97.8 66 18 128/63 97 03/29/17 19:13 96.7 87 18 142/65 95 03/29/17 16:00 96.2 72 18 125/67 98 I/O 03/29/17 03/29/17 03/29/17 03/30/17 03/30/17 03/30/17 07:00 15:00 23:00 07:00 15:00 23:00 Intake Total 1464 ml 480 ml 480 ml Output Total 200 ml 200 ml Balance 1264 ml 280 ml 480 ml Intake Oral 270 ml 480 ml 480 ml IV Total 594 ml Other 600 ml Output Urine Total 200 ml Estimated Blood Loss 200 ml # Voids 0 4 4 # Bowel Movements 0 0 Result Diagram: 03/30/17 0535 Procedures Right RAEANN Objective Remarks The patient's dressing is C/D/I. EHL/TA/G intact. 2+ pedal pulse. Calf is soft and nontender. + SILT. Assessment & Plan Ortho Post Op Day #: 1 Problem List: Assessment and Plan POD #1: Right RAEANN 1. WBAT RLE 2. Eliquis 2.5 mg PO BID while in hospital and then 5 mg PO BID when discharged for DVT prophylaxis 3. Ice to the right hip 4. Anticipatory discharge to SNF on Monday. Javi Mota Mar 30, 2017 12:38
[2017-03-30 16:00] VITALS: BP 118/56; PULSE 66; RESP 16; TEMP 98.2; O2SAT 93
[2017-03-30 20:00] VITALS: BP 128/67; PULSE 65; RESP 16; TEMP 98.6; O2SAT 93
[2017-03-30] MEDS: ATORVASTATIN 80 MG TAB PO SCH (20:55)
[2017-03-30] MEDS: MULTIVITAMINS/MINERALS THERAPEUTIC TAB PO SCH (20:55)
[2017-03-30] MEDS: PANTOPRAZOLE SOD 20 MG DELAYED RELEASE TAB PO SCH (20:55)
[2017-03-30] MEDS: CHOLECALCIFEROL (VIT D3) 1000 UNIT TAB PO SCH (20:55)
[2017-03-30] MEDS: DOCUSATE SODIUM 100 MG CAP PO SCH (20:55)
[2017-03-31 00:10] VITALS: BP 125/53; PULSE 74; RESP 17; TEMP 97.3; O2SAT 94
[2017-03-31] MEDS: ACETAMINOPHEN/HYDROcodone 325 MG/5 MG TAB PO PRN ×4 (04:25→18:20)
[2017-03-31 07:32] LABS: MEAN CELL VOLUME 95.8 FL (80.0-100.0); MEAN CORPUSCULAR HEMOGLOBIN 32.9 PG (27.0-34.0); MEAN CORPUSCULAR HGB CONC 34.4 % (32.0-36.0); PLATELET COUNT 257 TH/MM3 (150-450); RED BLOOD COUNT 3.02 MIL/MM3 (4.00-5.30); REVIEW FLAG FINAL; WHITE BLOOD COUNT 10.5 TH/MM3 (4.0-11.0)
[2017-03-31 08:00] VITALS: BP 126/63; PULSE 63; RESP 16; TEMP 97.9; O2SAT 94
--- NOTE | 2017-03-31 08:44 | HHI.PR ---
Subjective Remarks Follow up on patient s/p R THR. Patient is doing well. No acute concerns. Denies any fever, chills. Pain is well controlled. Objective Vitals Vital Signs Date Time Temp Pulse Resp B/P Pulse Ox O2 Delivery O2 Flow Rate FiO2 03/31/17 00:10 97.3 74 17 125/53 94 03/30/17 20:00 98.6 65 16 128/67 93 03/30/17 19:24 Room Air 03/30/17 16:00 98.2 66 16 118/56 93 03/30/17 12:00 98.4 62 16 123/61 96 I/O 03/30/17 03/30/17 03/30/17 03/31/17 03/31/17 03/31/17 07:00 15:00 23:00 07:00 15:00 23:00 Intake Total 480 ml 600 ml 720 ml 480 ml Balance 480 ml 600 ml 720 ml 480 ml Intake Oral 480 ml 600 ml 720 ml 480 ml # Voids 4 3 2 2 # Bowel Movements 0 0 0 0 Result Diagram: 03/31/17 0624 Imaging Last Impressions Hip and Pelvis X-Ray 03/29/17 0823 Signed Impressions: Service Date/Time: Wednesday, March 29, 2017 09:15 - CONCLUSION: 1. Good placement of a right bipolar hip prosthesis. 2. Calcification seen in the soft tissues inferior to the left femoral head and lateral to the left ischial tuberosity. Kash Maldonado MD Hip X-Ray 03/29/17 0000 Signed Impressions: Service Date/Time: Wednesday, March 29, 2017 07:07 - CONCLUSION: Anatomic alignment. Aubrey Puckett MD Objective Remarks GENERAL: Alert, NAD. SKIN: Warm and dry. HEAD: Normocephalic. EYES: No scleral icterus. No injection or drainage. NECK: Supple, trachea midline. No JVD or lymphadenopathy. CARDIOVASCULAR: Regular rate and rhythm without murmurs, gallops, or rubs. RESPIRATORY: Breath sounds equal bilaterally. No accessory muscle use. GASTROINTESTINAL: Abdomen soft, non-tender, nondistended. MUSCULOSKELETAL: No cyanosis, or edema. s/p Right THR BACK: Nontender without obvious deformity. No CVA tenderness. Procedures 03/29/2017 Right total hip arthroplasty A/P Assessment and Plan 71 yo female with a PMHX of HTN, recently dx'd atrial fibrillation on Eliquis, dyslipidemia, GERD and osteoarthritis s/p right THR performed by Dr. Lam. Hospitalist services consulted for medical management. -Osteoarthritis - s/p Right THR - H/H stable at 08/06 - maintain total hip precautions - pain management prn - bowel regimen with docusate and dulcolax - continue participation with PT - per primary team - Eliquis 2.5mg BID while in the hospital then resume previous home dose of Eliquis following discharge -Hypertension -Atrial fibrillation - rate well controlled. - continue home medications to include Atenolol 25mg po BID and Amlodipine 5mg po QD - Continue Apixaban -Dyslipidemia - continue home Atorvastatin 80mg po QHS -GERD - continue Protonix 20mg po QHS -Vitamin D deficiency - continue Vitamin D3 2000units po QHS -ETOH use - discussed decreasing alcohol consumption to one alcoholic beverage daily -DVT prophylaxis - bilateral SCD/DMITRY hose - early mobilization - per primary team - Eliquis 2.5mg BID while in the hospital then resume previous home dose of Eliquis following discharge Cari Gamino DO Mar 31, 2017 08:44
[2017-03-31] MEDS: SODIUM CHLORIDE 0.9% FLUSH 5 ML FLUSH IVF SCH ×2 (09:00→19:43)
[2017-03-31] MEDS: APIXABAN 2.5 MG TABLET PO SCH ×2 (09:38→19:42)
[2017-03-31] MEDS: amLODIPine BESYLATE 5 MG TAB PO SCH (09:38)
[2017-03-31] MEDS: MULTIVITAMINS/MINERALS THERAPEUTIC TAB PO SCH ×2 (09:38→19:41)
[2017-03-31] MEDS: DOCUSATE SODIUM 100 MG CAP PO SCH ×2 (09:38→19:42)
[2017-03-31] MEDS: MAGNESIUM HYDROXIDE SUSP 30 ML CUP PO PRN ×2 (09:38→19:42)
[2017-03-31] MEDS: ATENOLOL 25 MG TAB PO SCH ×2 (09:38→19:42)
[2017-03-31] MEDS: SODIUM CHLOR 0.9% 1000 ML INJ 1,000 ML IV SCH ×3 (09:39→19:43)
[2017-03-31 12:00] VITALS: BP 139/62; PULSE 62; RESP 16; TEMP 97.5; O2SAT 96
--- NOTE | 2017-03-31 18:02 | PD.ORT.PN ---
Subjective Post Op Day #: 2 Subjective Remarks Patient resting comfortably in bed in NAD. Patient reports minimal pain to the right hip. Objective Vitals Vital Signs Date Time Temp Pulse Resp B/P Pulse Ox O2 Delivery O2 Flow Rate FiO2 03/31/17 12:00 97.5 62 16 139/62 96 03/31/17 08:00 97.9 63 16 126/63 94 03/31/17 00:10 97.3 74 17 125/53 94 03/30/17 20:00 98.6 65 16 128/67 93 03/30/17 19:24 Room Air I/O 03/30/17 03/30/17 03/30/17 03/31/17 03/31/17 03/31/17 07:00 15:00 23:00 07:00 15:00 23:00 Intake Total 480 ml 600 ml 720 ml 480 ml Balance 480 ml 600 ml 720 ml 480 ml Intake Oral 480 ml 600 ml 720 ml 480 ml # Voids 4 3 2 2 # Bowel Movements 0 0 0 0 Result Diagram: 03/31/17 0624 Procedures Right RAEANN Objective Remarks The patient's dressing was changed with no drainage. Incision is well approximated with surgical clips intact. No redness or s/s of infection. Mild ecchymosis. EHL/TA/G intact. 2+ pedal pulse. Calf is soft and nontender to palpation. + SILT. Assessment & Plan Ortho Post Op Day #: 2 Problem List: Assessment and Plan POD #2: Right RAEANN 1. WBAT RLE 2. Eliquis 2.5 mg PO BID while in hospital and then 5 mg PO BID when discharged for DVT prophylaxis 3. Ice to the right hip 4. Anticipatory discharge to SNF on Monday. Javi Mota Mar 31, 2017 18:02
[2017-03-31] MEDS: CHOLECALCIFEROL (VIT D3) 1000 UNIT TAB PO SCH (19:41)
[2017-03-31] MEDS: PANTOPRAZOLE SOD 20 MG DELAYED RELEASE TAB PO SCH (19:42)
[2017-03-31] MEDS: ATORVASTATIN 80 MG TAB PO SCH (19:42)
[2017-03-31 20:15] VITALS: BP 114/56; PULSE 62; RESP 16; TEMP 98.2; O2SAT 96
[2017-04-01 00:15] VITALS: BP 143/71; PULSE 63; RESP 17; TEMP 97.3; O2SAT 97
[2017-04-01] MEDS: ACETAMINOPHEN/HYDROcodone 325 MG/5 MG TAB PO PRN ×3 (00:43→13:11)
[2017-04-01 06:32] LABS: HEMATOCRIT 31.9 % (35.0-46.0); MEAN CELL VOLUME 96.5 FL (80.0-100.0); MEAN CORPUSCULAR HEMOGLOBIN 32.4 PG (27.0-34.0); MEAN CORPUSCULAR HGB CONC 33.6 % (32.0-36.0); PLATELET COUNT 276 TH/MM3 (150-450); RED BLOOD COUNT 3.31 MIL/MM3 (4.00-5.30); RED CELL DISTRIBUTION WIDTH 16.3 % (11.6-17.2); REVIEW FLAG FINAL; WHITE BLOOD COUNT 9.1 TH/MM3 (4.0-11.0)
[2017-04-01 07:37] VITALS: BP 142/67; PULSE 66; RESP 18; TEMP 97.1; O2SAT 93
[2017-04-01] MEDS: SODIUM CHLOR 0.9% 1000 ML INJ 1,000 ML IV SCH (07:49)
[2017-04-01] MEDS: amLODIPine BESYLATE 5 MG TAB PO SCH (07:51)
[2017-04-01] MEDS: MULTIVITAMINS/MINERALS THERAPEUTIC TAB PO SCH (07:51)
[2017-04-01] MEDS: ATENOLOL 25 MG TAB PO SCH (07:51)
[2017-04-01] MEDS: APIXABAN 2.5 MG TABLET PO SCH (07:52)
[2017-04-01] MEDS: DOCUSATE SODIUM 100 MG CAP PO SCH (07:52)
[2017-04-01] MEDS: SODIUM CHLORIDE 0.9% FLUSH 5 ML FLUSH IVF SCH (07:56)
--- NOTE | 2017-04-01 08:30 | PD.ORT.PN ---
Subjective Post Op Day #: 3 Subjective Remarks Patient resting comfortably in bed in NAD. Patient reports minimal pain to the right hip. Patient states she is ready for discharge to [facility] today. Objective Vitals Vital Signs Date Time Temp Pulse Resp B/P Pulse Ox O2 Delivery O2 Flow Rate FiO2 04/01/17 07:37 97.1 66 18 142/67 93 04/01/17 00:15 97.3 63 17 143/71 97 03/31/17 20:15 98.2 62 16 114/56 96 03/31/17 12:00 97.5 62 16 139/62 96 I/O 03/31/17 03/31/17 03/31/17 04/01/17 04/01/17 04/01/17 07:00 15:00 23:00 07:00 15:00 23:00 Intake Total 480 ml 480 ml 240 ml Balance 480 ml 480 ml 240 ml Intake Oral 480 ml 480 ml 240 ml # Voids 2 1 2 # Bowel Movements 0 0 2 Result Diagram: 04/01/17 0604 Procedures Right RAEANN Objective Remarks The patient's dressing is C/D/I. EHL/TA/G intact. 2+ pedal pulse. Calf is soft and nontender to palpation. + SILT. Assessment & Plan Ortho Post Op Day #: 3 Problem List: Assessment and Plan POD #3: Right RAEANN 1. WBAT RLE 2. Eliquis 2.5 mg PO BID while in hospital and then 5 mg PO BID when discharged for DVT prophylaxis 3. Ice to the right hip 4. Stable for discharge to [facility] today. Javi Mota Apr 01, 2017 08:30
[2017-04-01 11:43] VITALS: BP 130/60; PULSE 60; RESP 18; TEMP 97.1; O2SAT 96
--- NOTE | 2017-04-03 20:49 | HHI.DS ---
Discharge Summary Admission Date Mar 29, 2017 at 05:14 Discharge Date: Apr 01, 2017 Admitting Diagnosis OA of the right hip Status post total hip arthroplasty, right Diagnosis: (1) Osteoarthritis of right hip Diagnosis: Principal (2) Status post total hip replacement, right Diagnosis: Principal Procedures Right RAEANN Brief History This is a 71 year old female patient with severe OA of the right hip CBC/BMP: 04/01/17 0604 Significant Findings Laboratory Tests Test 04/01/17 06:04 Red Blood Count 3.31 MIL/MM3 (4.00-5.30) Hemoglobin 10.7 GM/DL (11.6-15.3) Hematocrit 31.9 % (35.0-46.0) Mean Platelet Volume 6.9 FL (7.0-11.0) PE at Discharge The patient's dressing is C/D/I. EHL/TA/G intact. 2+ pedal pulse. Calf is soft and nontender to palpation. + SILT. Hospital Course The patient was admitted to the hospital for severe OA of the right hip to have a right RAEANN. The patient's surgery went well with no complications. The patient is WBAT on the right LE. The patient is on Eliquis for DVT prophylaxis and on a regular diet. The patient was discharged to a SNF and will f/u with Dr. Lam in 1-2 weeks. Pt Condition on Discharge: Stable Discharge Disposition: Discharge to SNF Discharge Instructions Diet Instructions: As Tolerated, No Restrictions Activities You Can Perform: Weight Bearing as Juliana Activities to Avoid: Strenuous Activity Follow up Referrals: Orthopedics with Blake Lam MD New Medications: Commode 3-in-1 (Commode 3-in-1) 1 Mis Mis 1 EA .ROUTE DIRECTED #1 Ref 0 EA Hydrocodone-Acetaminophen ([place]) 5-325 mg Tab 1-2 TAB PO Q4H PRN PAIN #60 Ref 0 TAB Walker with Front Wheels (Walker with Front Wheels) 1 Mis Mis 1 EA .ROUTE DIRECTED #1 Ref 0 EA Continued Medications: Amlodipine (Amlodipine) 5 Mg Tab 5 MG PO DAILY Blood Pressure Management #30 Ref 0 TAB Apixaban (Eliquis) 5 Mg Tab 5 MG PO BID Blood Clot Prevention #60 Ref 0 TAB Atenolol (Atenolol) 25 Mg Tab 25 MG PO BID Blood Pressure Management #30 TAB Atorvastatin (Atorvastatin) 80 Mg Tab 80 MG PO HS Cholesterol Management #30 Ref 0 TAB Cholecalciferol (Vitamin D-3) 2,000 Unit Tab 1 TAB PO HS Omeprazole (Omeprazole) 20 Mg Tab 20 MG PO HS #30 Ref 0 TAB Discontinued Medications: Acetaminophen (Acetaminophen Extra Strength) 500 Mg Tablet 1000 MG PO BID PRN PAIN SCALE 4 TO 7 Javi Mota Apr 03, 2017 20:49
== END 2017-04-01 14:00 | DRG 470 ==
LOC: HSDI 03-29 05:14 → N06B 03-29 11:13
PROVIDERS: ADMIT Orthopaedic Surgery; ATTEND Orthopaedic Surgery
PROC: 0SR902A Replacement of Right Hip Joint with Metal on Polyethylene Synthetic Substitute, Uncemented, Open Approach (ICD-10-PCS; principal; 2017-03-29 06:38)
DX: M16.11 Unilateral primary osteoarthritis, right hip (principal); I48.91 Unspecified atrial fibrillation; E55.9 Vitamin D deficiency, unspecified; I10 Essential (primary) hypertension; Z79.02 Long term (current) use of antithrombotics/antiplatelets; E78.5 Hyperlipidemia, unspecified; K21.9 Gastro-esophageal reflux disease without esophagitis; Z87.442 Personal history of urinary calculi
CPT/HCPCS: 73502; 76000; 85027; 86850; 86900; 86901; 94150; C1776; C9290; J0131; J0690; J1100; J1170; J1580; J2250; J2270; J2405; J2710; J3010; J3370; J7030; J7050; J7120

== ENCOUNTER → 2017-03-13 | Outpatient (CLI) | payer MEDICARE ==
[~2017-03-13] MED LIST changes: +ACET-898 PO; +APIX5TAB PO; +ASPI1TAB69 PO; +COMMODE 3-IN-11 MIS; +NORC5TAB PO; +WALKER WHEELS/F1 MIS
[2017-03-13 09:52] LABS: AUTOMATED NEUTROPHIL # 3.5 TH/MM3 (1.8-7.7); BASOPHIL # 0.1 TH/MM3 (0-0.2); EOSINOPHIL # 0.1 TH/MM3 (0-0.4); HEMATOCRIT 39.6 % (35.0-46.0); HEMO FLAGS DIFF FINAL; LYMPH % 32.4 % (9.0-44.0); LYMPHOCYTE # 2.1 TH/MM3 (1.0-4.8); MEAN CELL VOLUME 95.1 FL (80.0-100.0); MEAN CORPUSCULAR HEMOGLOBIN 31.9 PG (27.0-34.0); MEAN CORPUSCULAR HGB CONC 33.6 % (32.0-36.0); NEUT % 53.6 % (16.0-70.0); PLATELET COUNT 347 TH/MM3 (150-450); RED BLOOD COUNT 4.17 MIL/MM3 (4.00-5.30); RED CELL DISTRIBUTION WIDTH 16.5 % (11.6-17.2); WHITE BLOOD COUNT 6.5 TH/MM3 (4.0-11.0)
[2017-03-13 10:07] LABS: APTT (PATIENT) 29.2 SEC (24.3-30.1); PROTHROMBIN TIME - PATIENT 11.4 SEC (9.8-11.6)
[2017-03-13 10:21] LABS: WESTERGREN SEDIMENTATION RATE 19 mm/hr (0-30)
[2017-03-13 10:29] LABS: ANION GAP 6 MEQ/L (5-15); AST (GOT) 17 U/L (15-37); BICARBONATE 31.7 MEQ/L (21.0-32.0); BLOOD UREA NITROGEN 14 MG/DL (7-18); CHLORIDE 103 MEQ/L (98-107); GLOMERULAR FILTRATION RATE 100 ML/MIN (>89); GLUCOSE,FASTING 103 MG/DL (74-99); POTASSIUM 4.4 MEQ/L (3.5-5.1); SODIUM (NA) 141 MEQ/L (136-145)
[2017-03-13 10:31] LABS: ALT (GPT) 35 U/L (10-53)
[2017-03-13 10:33] LABS: ALKALINE PHOSPHATASE 86 U/L (45-117); TOTAL BILIRUBIN ADULT 0.6 MG/DL (0.2-1.0)
[2017-03-13 11:29] LABS: BACTERIA, URINE MOD /hpf; BLOOD, URINE LARGE (NEG); CALCIUM OXALATE CRYSTALS,URINE MANY /hpf; COMMENT (UR) CULTURE INDICATED; CULTURE IF INDICATED CULTURE INDICATED; GLUCOSE,URINE NEG (NEG); HYALINE CAST, URINE 3 /lpf (RARE); KETONE, URINE NEG (NEG); MUCUS URINE MANY /lpf (OCC); NITRITE,URINE NEG (NEG); PH, URINE 5.5 (5.0-8.5); SQUAMOUS EPITHELIAL CELL URINE 10 /hpf (0-5); TRANSITIONAL EPI CELLS, URINE <1 /hpf; URINE COLOR YELLOW (YELLW/STRAW)
--- NOTE | 2017-03-13 12:29 | RADRPT ---
EXAM DATE/TIME: 03/13/2017 11:26 [facility] COMPARISON: CHEST SINGLE AP, January 20, 2017, 2:31. INDICATIONS : Evaluate for pneumonia, pneumothorax, or communicable disease. Pre op for hip replacement. MEDICAL HISTORY : None. SURGICAL HISTORY : None. ENCOUNTER: Initial ACUITY: 1 day PAIN SCORE: 0/10 LOCATION: Bilateral chest FINDINGS: PA and lateral views of the chest demonstrate the lungs to be symmetrically aerated without evidence of mass, infiltrate or effusion. The cardiomediastinal contours are unremarkable. Osseous structure s are intact. CONCLUSION: 1. No acute cardiopulmonary findings. Javi Puckett MD on March 13, 2017 at 12:26 Board Certified Radiologist. This report was verified electronically.
--- NOTE | 2017-03-14 21:46 | EKG ---
Date Performed: 03/13/2017 Time Performed: 09:24:43 PTAGE: 71 years EKG: Sinus rhythm Since previous tracing, no significant change noted NORMAL ECG PREVIOUS TRACING : 01/20/2017 02.26 DOCTOR: Matias Romo Interpretating Date/Time 03/14/2017 21:44:27
== END ==
LOC: CPRE 08:45
PROVIDERS: ATTEND Orthopaedic Surgery
DX: Z01.810 Encounter for preprocedural cardiovascular examination (principal); Z01.812 Encounter for preprocedural laboratory examination; M16.11 Unilateral primary osteoarthritis, right hip; M25.50 Pain in unspecified joint; R82.90 Unspecified abnormal findings in urine
CPT/HCPCS: 36415; 71020; 80053; 81001; 85025; 85610; 85652; 85730; 87086; 93005

== ENCOUNTER → 2017-12-01 | Outpatient (CLI) | payer MEDICARE ==
[~2017-12-01] MED LIST changes: -ACET-898 PO; -ASPI1TAB69 PO; -ATOR1TAB18 PO; +ATOR80TA45 PO; -OMEP20TA PO; +OMEP20TA93 PO; +TYLE325T PO
--- NOTE | 2017-12-01 10:17 | RADRPT ---
EXAM DATE/TIME: 12/01/2017 09:59 [place] COMPARISON: CHEST PA & LAT, March 13, 2017, 11:26. INDICATIONS : Evaluate pneumonia, pneumothorax or communicable disease. Pre op left hip replacement. MEDICAL HISTORY : Hypertension. SURGICAL HISTORY : right hip replacement ENCOUNTER: Initial ACUITY: 1 day PAIN SCORE: 0/10 LOCATION: Bilateral chest FINDINGS: PA and lateral views of the chest demonstrate the lungs to be symmetrically aerated without evidence of mass, infiltrate or effusion. The cardiomediastinal contours are unremarkable. Osseous structure s are intact. CONCLUSION: No acute cardiopulmonary disease. Isac Tang MD on December 01, 2017 at 10:15 Board Certified Radiologist. This report was verified electronically.
[2017-12-01 10:45] LABS: AUTOMATED NEUTROPHIL # 2.5 TH/MM3 (1.8-7.7); BASOPHIL # 0.1 TH/MM3 (0-0.2); EOSINOPHIL # 0.2 TH/MM3 (0-0.4); EOSINOPHIL % 3.1 % (0.0-4.0); HEMATOCRIT 38.8 % (35.0-46.0); HEMOGLOBIN 13.2 GM/DL (11.6-15.3); LYMPH % 38.9 % (9.0-44.0); LYMPHOCYTE # 2.1 TH/MM3 (1.0-4.8); MEAN CELL VOLUME 95.9 FL (80.0-100.0); MEAN CORPUSCULAR HEMOGLOBIN 32.6 PG (27.0-34.0); MONO % 11.8 % (0.0-8.0); MONOCYTE # 0.7 TH/MM3 (0-0.9); NEUT % 45.2 % (16.0-70.0); PLATELET COUNT 312 TH/MM3 (150-450); RED BLOOD COUNT 4.05 MIL/MM3 (4.00-5.30); RED CELL DISTRIBUTION WIDTH 13.4 % (11.6-17.2); WHITE BLOOD COUNT 5.5 TH/MM3 (4.0-11.0)
[2017-12-01 10:53] LABS: INTERNATIONAL NORMALIZED RATIO 1.1 RATIO; PROTHROMBIN TIME - PATIENT 10.9 SEC (9.8-11.6)
[2017-12-01 10:53] LABS: BILIRUBIN, URINE NEG (NEG); BLOOD, URINE MOD (NEG); GLUCOSE,URINE NEG (NEG); KETONE, URINE NEG (NEG); MUCUS URINE MOD /lpf (OCC); NITRITE,URINE NEG (NEG); PH, URINE 5.5 (5.0-8.5); SQUAMOUS EPITHELIAL CELL URINE 5 /hpf (0-5); URINE COLOR YELLOW (YELLW/STRAW); URINE LEUKOCYTE ESTERASE LARGE (NEG)
[2017-12-01 11:07] LABS: ALBUMIN 3.4 GM/DL (3.4-5.0); ALT (GPT) 33 U/L (10-53); AST (GOT) 21 U/L (15-37); BICARBONATE 30.2 MEQ/L (21.0-32.0); BLOOD UREA NITROGEN 11 MG/DL (7-18); CHLORIDE 103 MEQ/L (98-107); CREATININE 0.47 MG/DL (0.50-1.00); GLOMERULAR FILTRATION RATE 130 ML/MIN (>89); GLUCOSE,FASTING 98 MG/DL (74-99); SODIUM (NA) 139 MEQ/L (136-145)
[2017-12-01 11:10] LABS: ALKALINE PHOSPHATASE 77 U/L (45-117); TOTAL BILIRUBIN ADULT 0.5 MG/DL (0.2-1.0); TOTAL PROTEIN 7.2 GM/DL (6.4-8.2)
[2017-12-01 11:19] LABS: WESTERGREN SEDIMENTATION RATE 18 mm/hr (0-30)
--- NOTE | 2017-12-01 14:35 | EKG ---
Date Performed: 12/01/2017 Time Performed: 09:11:56 PTAGE: 72 years EKG: Sinus rhythm LOW QRS VOLTAGE IN PRECORDIAL LEADS BORDERLINE ECG NO PREVIOUS TRACING Since the prior tracing, there has been no significant change DOCTOR: Pavithra Sandoval Interpretating Date/Time 12/01/2017 14:33:32
== END ==
LOC: CPRE 08:42
PROVIDERS: ATTEND Orthopaedic Surgery
DX: Z01.810 Encounter for preprocedural cardiovascular examination (principal); Z01.811 Encounter for preprocedural respiratory examination; Z01.812 Encounter for preprocedural laboratory examination; Z96.60 Presence of unspecified orthopedic joint implant; M16.12 Unilateral primary osteoarthritis, left hip; M25.50 Pain in unspecified joint; M79.609 Pain in unspecified limb; R94.31 Abnormal electrocardiogram [ECG] [EKG]
CPT/HCPCS: 36415; 71046; 80053; 81001; 85025; 85610; 85652; 85730; 93005

== ENCOUNTER 2017-12-13 05:08 | Inpatient (IN) | payer MEDICARE ==
[~2017-12-13] VITALS: Ht 154.9 cm; Wt 80.0 kg
[~2017-12-13 05:08] MED LIST changes: -COMMODE 3-IN-11 MIS; -NORC5TAB PO; -WALKER WHEELS/F1 MIS
[2017-12-13] MEDS ORDERED: POVIDONE IODINE 7.5% SCRUB 118 ML BOTTLE TOPICAL SCH (05:45)
[2017-12-13] MEDS ORDERED: SODIUM CHLORID 0.9% 500 ML IV PRN (05:45)
[2017-12-13] MEDS ORDERED: DEXAMETHASONE SOD PHOS 20 MG/5 ML VIAL IV PRN (05:45)
[2017-12-13] MEDS ORDERED: EXPAREL PERI-ARTICULAR INJECTION (TOTAL VOL. 60 ML) P-ARTICULR SCH ×2 (05:45)
[2017-12-13] MEDS ORDERED: CHLORHEXIDINE GLUCONATE 4% SOLN 120 ML BTL TOPICAL SCH (05:45)
[2017-12-13] MEDS ORDERED: ceFAZolin 2 GM PREMIX 50 ML IV SCH (05:45)
[2017-12-13] MEDS ORDERED: TRANEXAMIC ACID INJ 800 MG in SODIUM CHLORIDE 0.9% INJ 100 ML IV SCH ×2 (05:45→10:00)
[2017-12-13] MEDS ORDERED: METOPROLOL TARTRATE 25 MG TAB PO PRN (05:45)
[2017-12-13] MEDS ORDERED: LACTATED RINGER'S 1000 ML IV PRN (05:45)
[2017-12-13] MEDS ORDERED: CHLORHEXIDINE GLUCONATE 2 % 1 PACK (2 CLOTHS) TOPICAL PRN (05:45)
[2017-12-13] MEDS ORDERED: VANCOMYCIN 1000 MG/NS 250 ML (for <70 kg) IV SCH ×2 (05:45)
[2017-12-13] MEDS ORDERED: POVIDONE IODINE 5% (ANTISEPSIS KIT) 4 APPLICATIONS EACH NARE PRN (05:45)
[2017-12-13] MEDS ORDERED: GENTAMICIN SULFATE 80 MG/2 ML VIAL ONE (06:14)
[2017-12-13] MEDS ORDERED: ACETAMINOPHEN 1000 MG/100 ML 100 ML IV ONE (06:22)
[2017-12-13] MEDS ORDERED: FAMOTIDINE 20 MG/2 ML VIAL ONE (06:23)
[2017-12-13] MEDS ORDERED: MIDAZOLAM HCL 2 MG/2 ML VIAL ONE (06:23)
--- NOTE | 2017-12-13 06:42 | HHI.DCPOC ---
Discharge Care Plan Diagnosis: (1) Osteoarthritis of left hip (2) Status post total hip replacement, left Your Health Problems Are: Difficulty with ADL Goals to Promote Your Health * To prevent worsening of your condition and complications * To maintain your health at the optimal level Directions to Meet Your Goals Take your medications as prescribed Follow your dietary instruction Follow activity as directed Keep your appointments as scheduled Take your immunizations and boosters as scheduled If your symptoms worsen call your PCP, if no PCP go to Urgent Care Center or Emergency Room Smoking is Dangerous to Your Health. Avoid second hand smoke Call the 24-hour hour crisis hotline for domestic abuse at Javi Mota Dec 13, 2017 06:42
--- NOTE | 2017-12-13 06:43 | HHI.FF ---
Face to Face Verification Diagnosis: (1) Osteoarthritis of left hip (2) Status post total hip replacement, left Physical Therapy Gait training, Transfer training, bed to chair Hip: Total hip Left LE Weight Bearing: WB as tolerated Left LE Range of Motion: Active ROM Nursing Dressing Changes: Do not change dressing Additional Instructions First dressing change in the office I have seen patient Gabriela Olvera on 12/13/17. My clinical findings support the need for the requested home health care services because: Limited ability to care for self High risk of falls I certify that my clinical findings support that this patient is homebound because: Post-op weakness Unsteady gait/balance Javi Mota Dec 13, 2017 06:43
[2017-12-13] MEDS ORDERED: WALKER WHEELS/F1 MIS (06:44)
[2017-12-13] MEDS ORDERED: COMMODE 3-IN-11 MIS (06:44)
[2017-12-13] MEDS ORDERED: ALUMINUM/MAGNESIUM/SIMETH 30 ML CUP PO PRN (08:15)
[2017-12-13] MEDS ORDERED: MAGNESIUM HYDROXIDE SUSP 30 ML CUP PO PRN (08:15)
[2017-12-13] MEDS ORDERED: BISACODYL 10 MG SUPP RECTAL PRN (08:15)
[2017-12-13] MEDS ORDERED: NALOXONE HCL 0.4 MG/ML AMP IV PUSH PRN (08:15)
[2017-12-13] MEDS ORDERED: MORPHINE SULFATE 4 MG/ML INJ IV PUSH PRN (08:15)
[2017-12-13] MEDS ORDERED: ONDANSETRON HCL 4 MG/2 ML VIAL IVP PRN (08:15)
[2017-12-13] MEDS ORDERED: Post-op Orders (for Pharmacy) XX ONE (08:15)
[2017-12-13] MEDS ORDERED: diphenhydrAMINE HCL 50 MG/ML VIAL IV PUSH PRN (08:15)
--- NOTE | 2017-12-13 08:19 | PD.OP ---
Operative Report Date of Surgery: Dec 13, 2017 Preoperative Diagnosis: Left hip severe osteoarthritis Postoperative Diagnosis: Same Procedure: Left total hip arthroplasty Anesthesia: Gen. Surgeon: Blake Lam [employer]dnance Truck Installation Supervisor(s): LEONIE Camarillo The surgical procedure was assisted by my Advanced Registered Nurse Practitioner. My BENCH SHEAR OPERATOR presence was necessary throughout this case for the manipulation and positioning of the surgical extremity. My BENCH SHEAR OPERATOR was assisting me throughout the duration of this procedure. The skill set of an Advance Registered Nurse Practitioner was medically necessary to complete this procedure. During the surgical case, the surgical elastic knitter was working at the back table and the Advance Registered Nurse Practitioner was directly assisting me. Operation and Findings: IMPLANT DESCRIPTION: 1. [place] Gription Cup, acetabular size 50. 2. [place] AltrX polyethylene, neutral. 4. [place] femoral stem size 11, no collar, high offset. 5. Femoral head/neck metal, 32, +1. ESTIMATED BLOOD LOSS: 150 cc. JUSTIFICATION FOR PROCEDURE: The patient has end-stage osteoarthritis to the hip. There is an attached conservative measures pathway form in the chart that describes the nonoperative measures that were undertaken prior to consideration of surgical management. The patient understood the risks and benefits of surgical management. See my office notes for further details. PROCEDURE: The patient was brought back to the operative theatre. Adequate anesthesia was obtained. The patient received intravenous vancomycin and Ancef. The patient was carefully placed on the operative table. The lower extremity was prepped and draped in the usual sterile fashion. Fluoroscopic images were obtained. We made a standard anterior incision over the hip. We dissected through the TFL fascia, exposing the anterior capsule. Arthrotomy was performed in a T-shaped fashion. The capsule was tagged with a #2 FiberWire. End-stage arthritis was identified. Osteotomy was performed through the femoral neck exposing the acetabulum. Remnants of the labrum were resected and osteophytes were removed. We sequentially reamed the acetabulum. We trialed the hip and placed the final cup into position. This was done under fluoroscopic guidance to obtain the appropriate inclination and anteversion. A manhole cover was placed into the acetabular component. We then placed the final polyethylene into position and confirmed that it was well seated. Capsular attachments on the calcar and the inner aspect of the greater trochanter were resected. On the proximal aspect of the femur we used a rongeur , box osteotome, canal finder, sequential broaches and lateralizing rasp. We calcar planed the proximal femur. Then thoroughly irrigated the wound. We trialed the hip with the appropriate size stem. We placed the final stem in to position and trialed again. The hip was stable while it was externally rotated 70 degrees when the leg was lowered to the floor. The final head was applied, and final fluoroscopic images were obtained. The wound was thoroughly irrigated again. Interarticular injection of liposomal bupivacaine was given. The capsule was closed with #2 FiberWire and #1 Vicryl. The deep fascia was closed with a #2 Stratafix, followed by 2-0 Vicryl in the skin and Dermabond dressing. Postop plan is to weight-bear as tolerated. DVT prophylaxis will be performed with DMITRY Mcl[place], early mobilization, and beginning with Eliquis 2.5 mg by mouth twice a day while in the hospital. She will resume Eliquis 5 mg by mouth twice a day per her usual outpatient regimen after discharge from the hospital.. Blake Lam MD Dec 13, 2017 08:19
[2017-12-13] MEDS ORDERED: NORC5TAB PO (08:20)
[2017-12-13] MEDS ORDERED: DO NOT ADM ANY ANTICOAGULANT DRUGS PRN (08:37)
--- NOTE | 2017-12-13 08:38 | RADRPT ---
EXAM DATE/TIME: 12/13/2017 07:09 [facility] COMPARISON: No previous studies available for comparison. INDICATIONS : Left hip pain, anterior hip replacement done in operating room. MEDICAL HISTORY : None. SURGICAL HISTORY : None. ENCOUNTER: Initial ACUITY: 1 day PAIN SCORE: 10/10 LOCATION: Left hip. FINDINGS: Post surgical changes following left hip replacement are noted. Acetabular and femoral components are well-seated in satisfactory aligned. There is no evidence of acute bony abnormality. CONCLUSION: Satisfactory postoperative appearance of left hip status post replacement. Amadeo Pritchard MD on December 13, 2017 at 8:33 Board Certified Radiologist. This report was verified electronically.
[2017-12-13] MEDS: SODIUM CHLOR 0.9% 1000 ML INJ 1,000 ML IV SCH ×3 (08:45→21:31)
[2017-12-13] MEDS ORDERED: *morphine SULFATE 4 MG/ML PERIprocedure ONLY ONE ×3 (08:49→09:13)
--- NOTE | 2017-12-13 09:27 | RADRPT ---
EXAM DATE/TIME: 12/13/2017 08:59 [facility] COMPARISON: No previous studies available for comparison. INDICATIONS : Post op left hip surgery MEDICAL HISTORY : None. SURGICAL HISTORY : right hip replacement. ENCOUNTER: Initial ACUITY: 1 day PAIN SCORE: 9/10 LOCATION: Right hip and pelvis FINDINGS: Multiple views of the pelvis and left hip are real bilateral hip arthroplasties in good position. Sub cutaneous air is seen overlying the left hip. No acute fractures or dislocations. A shard of bone is seen along the medial cortex of the proximal femoral metaphysis on the left. CONCLUSION: Bilateral hip arthroplasties in good position. Isac Modi Jr., MD on December 13, 2017 at 9:25 Board Certified Radiologist. This report was verified electronically.
[2017-12-13] MEDS ORDERED: HYDROmorphone HCL PF 2 MG/ML VIAL ONE (09:33)
[2017-12-13] MEDS ORDERED: ROCURONIUM INJ 50 MG/5 ML SYRINGE IV PUSH ONE (12:00)
[2017-12-13] MEDS ORDERED: LIDOCAINE HCL 1% PF 5 ML SYRINGE OTHER ONE (12:00)
[2017-12-13] MEDS ORDERED: GLYCOPYRROLATE 1 MG/5 ML SYRINGE IV PUSH ONE (12:00)
[2017-12-13] MEDS ORDERED: ePHEDrine/NS 25 MG/5 ML SYRINGE IV ONE (12:00)
[2017-12-13] MEDS ORDERED: NEOSTIGMINE 5 MG/5 ML SYRINGE IV PUSH ONE (12:00)
[2017-12-13] MEDS ORDERED: ONDANSETRON HCL 4 MG/2 ML VIAL IV ONE (12:00)
[2017-12-13] MEDS ORDERED: PROPOFOL 200 MG/20 ML AMP IV ONE (12:00)
[2017-12-13 12:10] VITALS: BP 128/64; PULSE 78; RESP 18; TEMP 96.5; O2SAT 99
--- NOTE | 2017-12-13 14:57 | PD.CONS ---
HPI Service [facility] Consult Requested By Dr. Lam Reason for Consult Medical management history of hypertension, hyperlipidemia, paroxysmal A. fib Primary Care Physician Estefany Byers MD Diagnoses: History of Present Illness Patient is a very pleasant 72-year-old female history of hypertension, history of hyperlipidemia history paroxysmal atrial fibrillation, who is admitted under orthopedic services and underwent left hip replacement procedure. Patient baseline is very independent butfor the past 3 months has been using a walker mainly for convenience, having increasing pain lately and prompted this elective procedure. Patient is seen post op and is already up on the chair, had already voided, and had worked with physical therapy earlier. Patient denies any pain currently. [facility] consulted for medical medical management of hypertension hyperlipidemia and history of A. fib. Review of Systems Constitutional: DENIES: Diaphoretic episodes, Fatigue, Fever, Weight gain, Weight loss, Chills, Dizziness, Change in appetite, Night Sweats Endocrine: DENIES: Abnorml menstrual pattern, Heat/cold intolerance, Polydipsia , Polyuria, Polyphagia Eyes: DENIES: Blurred vision, Diplopia, Eye inflammation, Eye pain, Vision loss , Photosensitivity, Double Vision Ears, nose, mouth, throat: DENIES: Tinnitus, Hearing loss, Vertigo, Nasal discharge, Oral lesions, Throat pain, Hoarseness, Ear Pain, Running Nose, Epistaxis, Sinus Pain, Toothache, Odynophagia Respiratory: DENIES: Apneas, Cough, Snoring, Wheezing, Hemoptysis, Sputum production, Shortness of breath Cardiovascular: DENIES: Chest pain, Palpitations, Syncope, Dyspnea on Exertion , PND, Lower Extremity Edema, Orthopnea, Claudication Gastrointestinal: DENIES: Abdominal pain, Black stools, Bloody stools, Constipation, Diarrhea, Nausea, Vomiting, Difficulty Swallowing, Anorexia Genitourinary: DENIES: Abnormal vaginal bleeding, Dysmenorrhea, Dyspareunia, Sexual dysfunction, Urinary frequency, Urinary incontinence, Urgency, Hematuria , Dysuria, Nocturia, Vaginal discharge Musculoskeletal: COMPLAINS OF: Joint pain (left hip pain), DENIES: Muscle aches , Stiffness, Joint Swelling, Back pain, Neck pain Integumentary: DENIES: Abnormal pigmentation, Pruritus, Rash, Nail changes, Breast masses, Breast skin changes, Nipple discharge Hematologic/lymphatic: DENIES: Bruising, Lymphadenopathy Immunologic/allergic: DENIES: Eczema, Urticaria Neurologic: DENIES: Abnormal gait, Headache, Localized weakness, Paresthesias, Seizures, Speech Problems, Tremor, Poor Balance Psychiatric: DENIES: Anxiety, Confusion, Mood changes, Depression, Hallucinations, Agitation, Suicidal Ideation, Homicidal Ideation, Delusions Past Family Social History Allergies: Coded Allergies: No Known Allergies (Verified Allergy, Unknown, 12/13/17) Past Medical History Hypertension History of paroxysmal atrial fibrillation History of hyperlipidemia History of GERD Past Surgical History Hysterectomy in 1979 for fibroids, Appendectomy same time Right hip replacement in March 2017 Skin cancer removal Reported Medications And requests Atenolol 25 mg twice a day Lipitor Amlodipine And requests Active Ordered Medications See EMR Family History Noncontributory Social History Denies smoking or substance abuse 2 glasses of wine at dinner Physical Exam Vital Signs Vital Signs Date Time Temp Pulse Resp B/P (MAP) Pulse Ox O2 Delivery O2 Flow Rate FiO2 12/13/17 12:10 96.5 78 18 128/64 (85) 99 12/13/17 12:00 98.1 83 12 130/56 (80) 99 Nasal Cannula 2 12/13/17 11:00 67 12 119/59 (79) 98 Nasal Cannula 2 12/13/17 10:00 68 12 118/58 (78) 95 Nasal Cannula 2 12/13/17 09:45 98.1 70 12 128/61 (83) 94 Nasal Cannula 2 12/13/17 09:30 71 12 120/55 (76) 94 Nasal Cannula 3 12/13/17 09:15 67 12 137/65 (89) 95 Nasal Cannula 4 12/13/17 09:00 68 12 126/60 (82) 98 Nasal Cannula 4 12/13/17 08:45 97.7 72 12 138/65 (89) 98 Nasal Cannula 4 12/13/17 05:52 98.0 68 16 167/78 (107) 97 Physical Exam GENERAL: in no apparent distress. SKIN: Cool and dry. HEAD: Normocephalic. No temporal or scalp tenderness. EYES: Pupils equal round and reactive. Extraocular motions intact. No scleral icterus. No injection or drainage. ENT: Nose without bleeding, Throat without erythema, tonsillar hypertrophy or exudate. Uvula midline. Airway patent. NECK: Trachea midline. No JVD or lymphadenopathy. Supple, nontender, no meningeal signs. CARDIOVASCULAR: Regular rate and rhythm without murmurs, gallops, or rubs. RESPIRATORY: Clear to auscultation. Breath sounds equal bilaterally. No wheezes , rales, or rhonchi. GASTROINTESTINAL: Abdomen soft, non-tender, nondistended. No hepato-splenomegaly , or palpable masses. No guarding. MUSCULOSKELETAL: Extremities without clubbing, cyanosis, or edema. Negative Homans sign bilaterally. NEUROLOGICAL: Awake and alert. Cranial nerves II through XII intact. Motor and sensory grossly within normal limits. Five out of 5 muscle strength in all muscle groups. Normal speech. Imaging Last Impressions Hip and Pelvis X-Ray 12/13/17 0814 Signed Impressions: Service Date/Time: Wednesday, December 13, 2017 08:59 - CONCLUSION: Bilateral hip arthroplasties in good position. Isac Modi Jr., MD Hip X-Ray 12/13/17 0000 Signed Impressions: Service Date/Time: Wednesday, December 13, 2017 07:09 - CONCLUSION: Satisfactory postoperative appearance of left hip status post replacement. Amadeo Pritchard MD Assessment and Plan Assessment and Plan 72-year-old female Status post left total hip arthroplasty Orthopedic service is following PT daily History of hypertension history of paroxysmal atrial fibrillation currently in sinus rhythm. Continue on atenolol 25 mg twice a. Amlodipine 5 mg daily. Eliquis History of hyperlipidemia continue on statins. History of GERD continue on Prilosec 20 mg daily. DVT prophylaxis- patient on eliquis Thank you for this consult we'll follow patient in-house with you Discharge planning plan for senior living facility patient's choice- Marvin Ahmadi Discussed Condition With Patient Jerry Cheng MD Dec 13, 2017 14:57
[2017-12-13 16:00] VITALS: BP 100/52; PULSE 78; RESP 18; TEMP 97.3; O2SAT 97
[2017-12-13 16:42] VITALS: O2SAT 97
[2017-12-13 20:49] VITALS: BP 148/76; PULSE 90; RESP 18; TEMP 97.7; O2SAT 97
[2017-12-13] MEDS ORDERED: ZOLPIDEM TARTRATE 5 MG TAB PO PRN (21:00)
[2017-12-13] MEDS: ATENOLOL 25 MG TAB PO SCH (21:29)
[2017-12-13] MEDS: ATORVASTATIN 40 MG TAB PO SCH (21:29)
[2017-12-13] MEDS: ACETAMINOPHEN/HYDROcodone 325 MG/5 MG TAB PO PRN (21:29)
[2017-12-13] MEDS: PANTOPRAZOLE SOD 20 MG DELAYED RELEASE TAB PO SCH (21:29)
[2017-12-14] VITALS (7 sets, daily range): BP systolic 119–145; BP diastolic 59–69; PULSE 70–81; RESP 14–20; TEMP 97.2–99.2; O2SAT 93–96
[2017-12-14] MEDS: ACETAMINOPHEN/HYDROcodone 325 MG/5 MG TAB PO PRN ×5 (02:59→23:23)
[2017-12-14 06:57] LABS: HEMATOCRIT 31.9 % (35.0-46.0); MEAN CORPUSCULAR HEMOGLOBIN 33.2 PG (27.0-34.0); MEAN CORPUSCULAR HGB CONC 34.6 % (32.0-36.0); MEAN PLATELET VOLUME 6.8 FL (7.0-11.0); PLATELET COUNT 245 TH/MM3 (150-450); RED BLOOD COUNT 3.32 MIL/MM3 (4.00-5.30); RED CELL DISTRIBUTION WIDTH 13.6 % (11.6-17.2)
[2017-12-14] MEDS ORDERED: DEXAMETHASONE SOD PHOS 20 MG/5 ML VIAL IV ONE (07:45)
--- NOTE | 2017-12-14 07:59 | HHI.PR ---
Subjective Remarks minimal pain- "little"- controlled with po pain meds Objective Vitals Vital Signs Date Time Temp Pulse Resp B/P (MAP) Pulse Ox O2 Delivery O2 Flow Rate FiO2 12/14/17 07:33 97.8 76 18 142/64 (90) 94 12/14/17 04:00 99.2 75 19 145/67 (93) 95 12/14/17 00:00 98.8 81 20 142/61 (88) 94 12/13/17 20:49 97.7 90 18 148/76 (100) 97 12/13/17 16:42 97 Nasal Cannula 2.00 12/13/17 16:00 97.3 78 18 100/52 (68) 97 12/13/17 12:10 96.5 78 18 128/64 (85) 99 12/13/17 12:00 98.1 83 12 130/56 (80) 99 Nasal Cannula 2 12/13/17 11:00 67 12 119/59 (79) 98 Nasal Cannula 2 12/13/17 10:00 68 12 118/58 (78) 95 Nasal Cannula 2 12/13/17 09:45 98.1 70 12 128/61 (83) 94 Nasal Cannula 2 12/13/17 09:30 71 12 120/55 (76) 94 Nasal Cannula 3 12/13/17 09:15 67 12 137/65 (89) 95 Nasal Cannula 4 12/13/17 09:00 68 12 126/60 (82) 98 Nasal Cannula 4 12/13/17 08:45 97.7 72 12 138/65 (89) 98 Nasal Cannula 4 I/O 12/13/17 12/13/17 12/13/17 12/14/17 12/14/17 12/14/17 07:00 15:00 23:00 07:00 15:00 23:00 Intake Total 1380 ml 480 ml 520 ml Output Total 150 ml 800 ml Balance 1230 ml 480 ml -280 ml Intake Oral 480 ml 480 ml 520 ml IV Total 900 ml Output Urine Total 800 ml Estimated Blood Loss 150 ml # Voids 1 2 # Bowel Movements 0 0 0 Result Diagram: 12/14/17 0630 Imaging Last Impressions Hip and Pelvis X-Ray 12/13/17 0814 Signed Impressions: Service Date/Time: Wednesday, December 13, 2017 08:59 - CONCLUSION: Bilateral hip arthroplasties in good position. Isac Modi Jr., MD Hip X-Ray 12/13/17 0000 Signed Impressions: Service Date/Time: Wednesday, December 13, 2017 07:09 - CONCLUSION: Satisfactory postoperative appearance of left hip status post replacement. Amadeo Pritchard MD Objective Remarks awake and alert , oriented x 3 anicteric lungs- clear regular rhythm abdomen soft, nontender left hip- post op dressing in place- no surrounding erythema no calf tenderness or swelling Procedures 12/13- left RAEANN A/P Assessment and Plan 72-year-old female Status post left total hip arthroplasty 12/13 Orthopedic service is following PT daily History of hypertension history of paroxysmal atrial fibrillation currently in sinus rhythm. Continue on atenolol 25 mg twice a days. Amlodipine 5 mg daily. Eliquis History of hyperlipidemia continue on statins. History of GERD continue on Prilosec 20 mg daily. History of AGNES- CPAP hs DVT prophylaxis- patient on eliquis CM- ff- Jerry Cheng MD Dec 14, 2017 07:59
[2017-12-14] MEDS: APIXABAN 2.5 MG TABLET PO SCH ×2 (08:00→17:38)
[2017-12-14] MEDS: ATENOLOL 25 MG TAB PO SCH ×2 (08:23→21:00)
[2017-12-14] MEDS: amLODIPine BESYLATE 5 MG TAB PO SCH (08:23)
--- NOTE | 2017-12-14 12:39 | PD.ORT.PN ---
Subjective Post Op Day #: 1 Subjective Remarks Patient is OOB in chair with mild to moderate left hip pain. Patient has been ambulatory. Objective Vitals Vital Signs Date Time Temp Pulse Resp B/P (MAP) Pulse Ox O2 Delivery O2 Flow Rate FiO2 12/14/17 11:40 97.2 71 18 119/59 (79) 93 12/14/17 07:33 97.8 76 18 142/64 (90) 94 12/14/17 04:00 99.2 75 19 145/67 (93) 95 12/14/17 00:00 98.8 81 20 142/61 (88) 94 12/13/17 20:49 97.7 90 18 148/76 (100) 97 12/13/17 16:42 97 Nasal Cannula 2.00 12/13/17 16:00 97.3 78 18 100/52 (68) 97 I/O 12/13/17 12/13/17 12/13/17 12/14/17 12/14/17 12/14/17 07:00 15:00 23:00 07:00 15:00 23:00 Intake Total 1380 ml 480 ml 520 ml Output Total 150 ml 800 ml Balance 1230 ml 480 ml -280 ml Intake Oral 480 ml 480 ml 520 ml IV Total 900 ml Output Urine Total 800 ml Estimated Blood Loss 150 ml # Voids 1 2 # Bowel Movements 0 0 0 Result Diagram: 12/14/17 0630 Procedures Left RAEANN Objective Remarks Dressing is C/D/I. EHL/EHL/TA. 2+ pedal pulse. Calf is soft and nontender. + SILT. Assessment & Plan Ortho Post Op Day #: 1 Problem List: Assessment and Plan POD #1: Left RAEANN 1. WBAT LLE 2. Resume Eliquis 2.5 mg BID while in the hospital and then transition back to Eliquis 5 mg BID for DVT prophylaxis when discharged. 3. Ice to the left hip PRN 4. Anticipatory discharge to SNF on Monday. 5. F/U in the office with Dr. Lam or LEONIE Avendaño as previously scheduled. Javi Mota Dec 14, 2017 12:39
[2017-12-14] MEDS: SODIUM CHLOR 0.9% 1000 ML INJ 1,000 ML IV SCH (14:30)
[2017-12-14] MEDS: MULTIVITAMINS/MINERALS THERAPEUTIC TAB PO SCH (21:00)
[2017-12-14] MEDS: ATORVASTATIN 40 MG TAB PO SCH (22:18)
[2017-12-14] MEDS: PANTOPRAZOLE SOD 20 MG DELAYED RELEASE TAB PO SCH (22:18)
[2017-12-14] MEDS: DOCUSATE SODIUM 100 MG CAP PO SCH (22:19)
[2017-12-15] VITALS (8 sets, daily range): BP systolic 117–164; BP diastolic 60–78; PULSE 59–80; RESP 16–19; TEMP 97.4–98.4; O2SAT 94–97
[2017-12-15] MEDS: SODIUM CHLOR 0.9% 1000 ML INJ 1,000 ML IV SCH ×3 (00:30→20:30)
[2017-12-15] MEDS: ACETAMINOPHEN/HYDROcodone 325 MG/5 MG TAB PO PRN ×4 (04:34→20:12)
[2017-12-15 05:07] LABS: HEMATOCRIT 32.1 % (35.0-46.0); MEAN CELL VOLUME 96.1 FL (80.0-100.0); MEAN CORPUSCULAR HEMOGLOBIN 32.9 PG (27.0-34.0); MEAN CORPUSCULAR HGB CONC 34.3 % (32.0-36.0); MEAN PLATELET VOLUME 6.8 FL (7.0-11.0); PLATELET COUNT 247 TH/MM3 (150-450); RED BLOOD COUNT 3.34 MIL/MM3 (4.00-5.30); RED CELL DISTRIBUTION WIDTH 13.5 % (11.6-17.2); WHITE BLOOD COUNT 11.1 TH/MM3 (4.0-11.0)
[2017-12-15] MEDS: APIXABAN 2.5 MG TABLET PO SCH ×2 (06:00→18:08)
[2017-12-15] MEDS: MULTIVITAMINS/MINERALS THERAPEUTIC TAB PO SCH ×2 (09:00→20:11)
[2017-12-15] MEDS: DOCUSATE SODIUM 100 MG CAP PO SCH ×2 (10:03→20:11)
[2017-12-15] MEDS: amLODIPine BESYLATE 5 MG TAB PO SCH (10:03)
[2017-12-15] MEDS: ATENOLOL 25 MG TAB PO SCH ×2 (10:03→20:11)
--- NOTE | 2017-12-15 12:13 | HHI.PR ---
Subjective Remarks doing great worked with PT this am and again later this pm voiding pain controlled Objective Vitals Vital Signs Date Time Temp Pulse Resp B/P (MAP) Pulse Ox O2 Delivery O2 Flow Rate FiO2 12/15/17 12:00 97.4 74 19 119/60 (79) 95 12/15/17 08:00 97.5 59 18 117/62 (80) 95 12/15/17 04:15 98.2 75 17 139/78 (98) 96 12/15/17 00:05 98.3 69 17 164/71 (102) 95 12/14/17 21:03 96 12/14/17 19:57 98.5 70 14 136/63 (87) 96 12/14/17 16:20 98.5 70 17 138/69 (92) I/O 12/14/17 12/14/17 12/14/17 12/15/17 12/15/17 12/15/17 07:00 15:00 23:00 07:00 15:00 23:00 Intake Total 520 ml 720 ml 360 ml 240 ml Output Total 800 ml Balance -280 ml 720 ml 360 ml 240 ml Intake Oral 520 ml 720 ml 360 ml 240 ml Output Urine Total 800 ml # Voids 4 1 2 # Bowel Movements 0 0 0 0 Result Diagram: 12/15/17 0446 Imaging Last Impressions Hip and Pelvis X-Ray 12/13/17 0814 Signed Impressions: Service Date/Time: Wednesday, December 13, 2017 08:59 - CONCLUSION: Bilateral hip arthroplasties in good position. Isac Modi Jr., MD Hip X-Ray 12/13/17 0000 Signed Impressions: Service Date/Time: Wednesday, December 13, 2017 07:09 - CONCLUSION: Satisfactory postoperative appearance of left hip status post replacement. Amadeo Pritchard MD Objective Remarks awake and alert , oriented x 3 anicteric lungs- clear regular rhythm abdomen soft, nontender left hip- post op dressing in place- no calf tenderness or swelling Procedures 12/13- left RAEANN A/P Assessment and Plan 72-year-old female Status post left total hip arthroplasty 12/13 Orthopedic service is following PT daily History of hypertension history of paroxysmal atrial fibrillation currently in sinus rhythm. Continue on atenolol 25 mg twice a days. Amlodipine 5 mg daily. Eliquis History of hyperlipidemia continue on statins. History of GERD continue on Prilosec 20 mg daily. History of AGNES- home CPAP at bedside [facility] - Jerry Rouse MD Dec 15, 2017 12:13
--- NOTE | 2017-12-15 16:07 | PD.ORT.PN ---
Subjective Subjective Remarks no comlaints Objective Vitals Vital Signs Date Time Temp Pulse Resp B/P (MAP) Pulse Ox O2 Delivery O2 Flow Rate FiO2 12/15/17 12:00 97.4 74 19 119/60 (79) 95 12/15/17 08:00 97.5 59 18 117/62 (80) 95 12/15/17 04:15 98.2 75 17 139/78 (98) 96 12/15/17 00:05 98.3 69 17 164/71 (102) 95 12/14/17 21:03 96 12/14/17 19:57 98.5 70 14 136/63 (87) 96 12/14/17 16:20 98.5 70 17 138/69 (92) I/O 12/14/17 12/14/17 12/14/17 12/15/17 12/15/17 12/15/17 07:00 15:00 23:00 07:00 15:00 23:00 Intake Total 520 ml 720 ml 360 ml 240 ml Output Total 800 ml Balance -280 ml 720 ml 360 ml 240 ml Intake Oral 520 ml 720 ml 360 ml 240 ml Output Urine Total 800 ml # Voids 4 1 2 # Bowel Movements 0 0 0 0 Result Diagram: 12/15/17 0446 Procedures Left RAEANN Objective Remarks Dressing is C/D/I. EHL/EHL/TA. Calf is soft and nontender. + SILT. Assessment & Plan Assessment and Plan POD #2: Left RAEANN 1. WBAT LLE 2. Resume Eliquis 2.5 mg BID while in the hospital and then transition back to Eliquis 5 mg BID for DVT prophylaxis when discharged. 3. Ice to the left hip PRN 4. Anticipatory discharge to SNF on Monday. 5. F/U in the office with Dr. Lam or LEONIE Avendaño as previously scheduled. Blake Lam MD Dec 15, 2017 16:07
[2017-12-15] MEDS: ATORVASTATIN 40 MG TAB PO SCH (20:11)
[2017-12-15] MEDS: PANTOPRAZOLE SOD 20 MG DELAYED RELEASE TAB PO SCH (20:11)
[2017-12-16] MEDS: ACETAMINOPHEN/HYDROcodone 325 MG/5 MG TAB PO PRN ×4 (00:16→14:04)
[2017-12-16] MEDS: APIXABAN 2.5 MG TABLET PO SCH (05:55)
[2017-12-16] MEDS: SODIUM CHLOR 0.9% 1000 ML INJ 1,000 ML IV SCH (06:30)
[2017-12-16 07:03] LABS: HEMATOCRIT 32.1 % (35.0-46.0); HEMOGLOBIN 11.1 GM/DL (11.6-15.3); MEAN CELL VOLUME 95.6 FL (80.0-100.0); MEAN CORPUSCULAR HEMOGLOBIN 33.1 PG (27.0-34.0); MEAN CORPUSCULAR HGB CONC 34.6 % (32.0-36.0); PLATELET COUNT 249 TH/MM3 (150-450); RED BLOOD COUNT 3.36 MIL/MM3 (4.00-5.30); RED CELL DISTRIBUTION WIDTH 13.3 % (11.6-17.2); WHITE BLOOD COUNT 8.9 TH/MM3 (4.0-11.0)
--- NOTE | 2017-12-16 07:33 | HHI.PR ---
Subjective Remarks slept good overnight pain controlled looking forward to discharge to SNF today voiding well Objective Vitals Vital Signs Date Time Temp Pulse Resp B/P (MAP) Pulse Ox O2 Delivery O2 Flow Rate FiO2 12/15/17 23:57 98.1 70 18 129/65 (86) 97 12/15/17 20:00 98.4 80 16 141/71 (94) 94 12/15/17 17:59 95 21 12/15/17 16:00 98.0 64 18 126/68 (87) 95 12/15/17 12:00 97.4 74 19 119/60 (79) 95 12/15/17 08:00 97.5 59 18 117/62 (80) 95 I/O 12/15/17 12/15/17 12/15/17 12/16/17 12/16/17 12/16/17 07:00 15:00 23:00 07:00 15:00 23:00 Intake Total 240 ml 360 ml Balance 240 ml 360 ml Intake Oral 240 ml 360 ml # Voids 2 3 2 # Bowel Movements 0 1 0 Result Diagram: 12/16/17 0626 Imaging Last Impressions Hip and Pelvis X-Ray 12/13/17 0814 Signed Impressions: Service Date/Time: Wednesday, December 13, 2017 08:59 - CONCLUSION: Bilateral hip arthroplasties in good position. Isac Modi Jr., MD Hip X-Ray 12/13/17 0000 Signed Impressions: Service Date/Time: Wednesday, December 13, 2017 07:09 - CONCLUSION: Satisfactory postoperative appearance of left hip status post replacement. Amadeo Pritchard MD Objective Remarks awake and alert, oriented x 3 anicteric lungs- clear regular rhythm abdomen soft, nontender left hip- post op dressing in place- no calf tenderness or swelling Procedures 12/13- left RAEANN A/P Assessment and Plan 72-year-old female Status post left total hip arthroplasty 12/13 Orthopedic service is following PT daily History of hypertension history of paroxysmal atrial fibrillation - in sinus rhythm. Continue on atenolol 25 mg twice a days Amlodipine 5 mg daily. Eliquis History of hyperlipidemia continue on statins. History of GERD continue on Prilosec 20 mg daily. History of AGNES- on CPAP hs DVT prophylaxis- patient on eliquis CM- ff- for DC today to SNF- Jerry Rouse MD Dec 16, 2017 07:33
--- NOTE | 2017-12-16 07:39 | PD.ORT.PN ---
Subjective Subjective Remarks Doing 'ok' today. Some pain but no new complaints. Questions about discharge to SNF. Objective Vitals Vital Signs Date Time Temp Pulse Resp B/P (MAP) Pulse Ox O2 Delivery O2 Flow Rate FiO2 12/16/17 07:00 18 12/15/17 23:57 98.1 70 18 129/65 (86) 97 12/15/17 20:00 98.4 80 16 141/71 (94) 94 12/15/17 17:59 95 21 12/15/17 16:00 98.0 64 18 126/68 (87) 95 12/15/17 12:00 97.4 74 19 119/60 (79) 95 12/15/17 08:00 97.5 59 18 117/62 (80) 95 I/O 12/15/17 12/15/17 12/15/17 12/16/17 12/16/17 12/16/17 07:00 15:00 23:00 07:00 15:00 23:00 Intake Total 240 ml 360 ml Balance 240 ml 360 ml Intake Oral 240 ml 360 ml # Voids 2 3 2 # Bowel Movements 0 1 0 Result Diagram: 12/16/17 0626 Procedures Left RAEANN Objective Remarks Laying in bed NAD VSS Left LE Hip dressing c/d/i, mild swelling, no erythema +motor at, +sens, +nvi Neg homans - Seen and evaluated by Dr. Sumanth Ward Assessment & Plan Ortho Post Op Day #: 3 Problem List: Assessment and Plan POD #3: Left RAEANN Ortho stable. PT - WBAT left LE. Resume Eliquis 2.5 mg BID while in the hospital and then transition back to Eliquis 5 mg BID for DVT prophylaxis when discharged. Ice to operative site bid. [place] for pain. Dressing changes as written. D/C to SNF today. F/U in the office with Dr. Lam or LEONIE Avendaño as previously scheduled. Wanda Peralta Dec 16, 2017 07:39
[2017-12-16 08:00] VITALS: BP 138/65; PULSE 69; RESP 20; TEMP 98.1; O2SAT 93
[2017-12-16] MEDS: DOCUSATE SODIUM 100 MG CAP PO SCH (08:28)
[2017-12-16] MEDS: amLODIPine BESYLATE 5 MG TAB PO SCH (08:28)
[2017-12-16] MEDS: ATENOLOL 25 MG TAB PO SCH (08:29)
[2017-12-16] MEDS: MULTIVITAMINS/MINERALS THERAPEUTIC TAB PO SCH (08:29)
[2017-12-16 12:00] VITALS: BP 140/75; PULSE 63; RESP 20; TEMP 99.1; O2SAT 95
--- NOTE | 2017-12-20 21:27 | HHI.DS ---
Discharge Summary Admission Date Dec 13, 2017 at 05:08 Discharge Date: Dec 16, 2017 Admitting Diagnosis OA of the left hip Status post total hip replacement, left Diagnosis: (1) Osteoarthritis of left hip Diagnosis: Principal ICD Codes: M16.12 - Unilateral primary osteoarthritis, left hip (2) Status post total hip replacement, left Diagnosis: Principal ICD Codes: Z96.642 - Presence of left artificial hip joint Procedures Left RAEANN Brief History This is a 72 year old female patient with sever OA of the left hip. CBC/BMP: 12/16/17 0626 PE at Discharge Laying in bed NAD VSS Left LE Hip dressing c/d/i, mild swelling, no erythema +motor at, +sens, +nvi Neg homans - [facility] The patient was admitted to the hospital for severe OA of the left hip to have a left RAEANN. The patient's surgery went well with no complications. The patient is WBAT on the LLE. The patient resumed her Eliquis post operatively and will continue this for DVT prophylaxis. The patient is on a regular diet. The patient was discharged to SNF and will f/u with Dr. Lam or LEONIE Avendaño as previously scheduled. Pt Condition on Discharge: Stable Discharge Disposition: Discharge to SNF Discharge Instructions Diet Instructions: As Tolerated, No Restrictions Activities You Can Perform: Weight Bearing as Juliana Activities to Avoid: Strenuous Activity Follow up Referrals: Orthopedics with Blake Lam MD New Medications: Commode 3-in-1 (Commode 3-in-1) 1 Mis Mis EA .XX DIRECTED, #1 0 Refills Hydrocodone-Acetaminophen ([place]) 5 Mg-325 Mg Tab 1-2 TAB PO Q4H PRN for PAIN, #60 TAB 0 Refills Walker with Front Wheels (Walker with Front Wheels) 1 Mis Mis EA .XX DIRECTED, #1 0 Refills Continued Medications: Amlodipine (Amlodipine) 5 Mg Tab 5 MG PO DAILY for Blood Pressure Management, #30 TAB 0 Refills Apixaban (Eliquis) 5 Mg Tab 5 MG PO BID for Blood Clot Prevention, #60 TAB 0 Refills Atenolol (Atenolol) 25 Mg Tab 25 MG PO BID for Blood Pressure Management, #30 TAB Atorvastatin (Atorvastatin) 80 Mg Tab 40 MG PO HS for Cholesterol Management, #30 TAB 0 Refills Cholecalciferol (Vitamin D-3) 2,000 Unit Tab 1 TAB PO HS Omeprazole (Omeprazole) 20 Mg Tab 20 MG PO HS, #30 TAB 0 Refills Discontinued Medications: Acetaminophen (Tylenol) 325 Mg Tab 1300 MG PO BID PRN for pain, TAB 0 Refills Javi Mota Dec 20, 2017 21:27
== END 2017-12-16 15:18 | DRG 470 ==
LOC: HSDI 05:08 → N06B 12:22
PROVIDERS: ADMIT Orthopaedic Surgery; ATTEND Orthopaedic Surgery
PROC: 0SRB02A Replacement of Left Hip Joint with Metal on Polyethylene Synthetic Substitute, Uncemented, Open Approach (ICD-10-PCS; principal; 2017-12-13 06:38)
DX: M16.12 Unilateral primary osteoarthritis, left hip (principal); Z96.641 Presence of right artificial hip joint; I48.0 Paroxysmal atrial fibrillation; I10 Essential (primary) hypertension; E78.5 Hyperlipidemia, unspecified; G47.33 Obstructive sleep apnea (adult) (pediatric); J45.909 Unspecified asthma, uncomplicated; K21.9 Gastro-esophageal reflux disease without esophagitis; F10.10 Alcohol abuse, uncomplicated; Z79.01 Long term (current) use of anticoagulants; Z85.828 Personal history of other malignant neoplasm of skin
CPT/HCPCS: 73502; 76000; 85027; 86850; 86900; 86901; 94150; C1776; C9290; J0131; J0690; J1100; J1170; J1580; J2250; J2270; J2405; J2710; J3010; J3370; J7030; J7050; J7120